=== PATIENT | male | born 1955 | race Caucasian/White ===

== ENCOUNTER 2019-03-07 12:51 | Inpatient (IN) ==
--- NOTE | 2019-03-07 13:50 | Diag Imaging Result Doc PS360 ---
EXAM: CHEST-PORTABLE HISTORY: psych clearance TECHNIQUE: Chest single view COMPARISON: None. FINDINGS: The lungs are well expanded. The heart is not enlarged. The vessels are not distended. There are dense right upper lobe infiltrates. No effusion identified. IMPRESSION: Right upper lobe pneumonia. Short-term follow-up PA and lateral recommended. Electronically signed by Pepe Guillen 03/07/2019 1:48 PM
[2019-03-07 14:48] LABS: URINE SOURCE CATH
[2019-03-07 14:54] LABS: BILIRUBIN URINE NEGATIVE (NEGATIVE); BLOOD URINE MODERATE (NEGATIVE); COLOR YELLOW; GLUCOSE URINE NEGATIVE (NEGATIVE); KETONE URINE 20 mg/dL (NEGATIVE); LEUKOCYTES URINE LARGE (NEGATIVE); NITRITE URINE NEGATIVE (NEGATIVE); PH URINE 5.5; PROTEIN URINE 30 mg/dL (NEGATIVE); SP GRAVITY URINE 1.015; TURBIDITY URINE HAZY (CLEAR); UROBILINOGEN URINE NORMAL (NORMAL)
[2019-03-07 14:56] LABS: UR EPITHELIAL CELLS <10 /HPF (<10); URINE BACTERIA NEGATIVE /HPF; URINE WBC TNTC /HPF (<10)
[2019-03-07 15:14] LABS: URINE CASTS NONE SEEN; URINE CRYSTALS NONE SEEN; URINE SMALL ROUND CELLS NONE SEEN; URINE YEAST NONE SEEN
[2019-03-07 15:19] LABS: UR AMPHETAMINES QUAL NONE DETECTED (NONE DETECT); UR BARBITUATES QUAL NONE DETECTED (NONE DETECT); UR BENZODIAZEPIN QUAL PRESUMPTIVE POSITIVE (NONE DETECT); UR CANNABINOIDS QUAL NONE DETECTED (NONE DETECT); UR COCAINE QUAL NONE DETECTED (NONE DETECT); UR METHADONE QUAL NONE DETECTED (NONE DETECT); UR OPIATES QUAL NONE DETECTED (NONE DETECT); UR OXYCODONE QUAL NONE DETECTED (NONE DETECT); UR PCP QUAL NONE DETECTED (NONE DETECT)
--- NOTE | 2019-03-07 15:21 | Diag Imaging Result Doc PS360 ---
EXAM: CT HEAD W/O CONTRAST HISTORY: ams TECHNIQUE: CT head without contrast COMPARISON: 07/03/2015 FINDINGS: No parenchymal hemorrhage. No epidural or subdural hematoma. No subarachnoid hemorrhage. Encephalomalacia from an old left occipital infarct. There are chronic microvascular ischemic changes with old lacunar infarcts bilaterally. No mass identified on this noncontrasted exam. No hydrocephalus. No sinus opacification. 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 Electronically signed by Pepe Guillen 03/07/2019 3:19 PM
[2019-03-07] MEDS ORDERED: NS 1,000 ML IV ONE ×2 (16:48→16:52)
[2019-03-07] MEDS ORDERED: ROCEPHIN 1 GM in NS 50 ML IV ONE (16:48)
[2019-03-07] MEDS ORDERED: ZOSYN 3.375 GM in NS 50 ML IV ONE (16:52)
[2019-03-07] MEDS ORDERED: VANCOMYCIN 1 GM/NS 1 GM/250 ML IVPB IV ONE (16:52)
[2019-03-07 17:13] LABS: BASO# 0.03 X1000 (0.0-0.2); BASO% 0.2 % (0.0-0.8); EOS% 0.5 % (0.0-10.0); HEMATOCRIT 31.3 % (42.0-52.0); HEMOGLOBIN 10.4 g/dL (14.0-18.0); IMM GRAN# 0.06 X1000 (0.0-0.04); IMM GRAN% 0.3 % (0.0-0.5); LYMPH# 1.32 X1000 (1.2-3.4); LYMPH% 6.9 % (20.5-51.1); MCH 28.3 PG (27-31); MCHC 33.2 g/dL (33-37); MCV 85.1 FL (81-99); MONO# 3.17 X1000 (0.11-0.59); MONO% 16.5 % (1.7-9.3); MPV 9.3 FL (7.4-10.4); NEUT# 14.48 X1000 (1.4-6.5); NEUT% 75.6 % (42.2-75.2); PLT 368 X1000 (130-400); RBC 3.68 XMIL (4.7-6.1); WBC 19.16 X1000 (4.8-10.8)
[2019-03-07 17:29] LABS: AGAP 12; ALB/GLOB RATIO 0.7; ALKALINE PHOSPHATASE 68 U/L (32-122); BUN 13 mg/dL (8-22); CALCIUM 8.7 mg/dL (8.8-10.2); CHLORIDE 99 mmol/L (98-107); COSMO 270; CREATININE 0.7 mg/dL (0.7-1.2); ESTIMATED GFR > 60; GLUCOSE 67 mg/dL (70-104); GOT 17 U/L (10-34); GPT 7 U/L (10-44); POTASSIUM 4.1 mmol/L (3.5-5.1); SODIUM 136 mmol/L (136-145); TCO2 25 mmol/L (25-35); TOTAL BILIRUBIN 0.34 mg/dL (0.20-1.00); TOTAL PROTEIN 7.4 g/dL (6.3-8.3)
[2019-03-07 17:49] LABS: FREE T4 2.66 ng/dL (0.93-1.70); TSH 0.01 uIUmL (0.27-4.20)
[2019-03-07 17:57] LABS: ACETONE SERUM NEGATIVE (NEGATIVE)
[2019-03-07] MEDS ORDERED: STERILE WATER INJ. INJ ONE (18:03)
[2019-03-07] MEDS ORDERED: GEODON IM ONE (18:03)
[2019-03-07] MEDS ORDERED: BENADRYL IV ONE (18:04)
--- NOTE | 2019-03-07 18:04 | PROVIDER DOCUMENTATION ---
This chart was entered by Niki Melton Scribe, acting as scribe for Olman Jones MD. HPI-General Adult - General Chief Complaint: General Adult Stated Complaint: MEDICAL CLEARENCE Time Seen by Provider: 03/07/19 13:17 Source: RN/MD, senior living records Allergies/Adverse Reactions: Patient Allergies Allergy/AdvReac Type Severity Reaction Status Date / Time No Known Allergies Allergy Unverified 07/03/15 10:12 Home Medications: Home Medication List Medication Instructions Recorded Confirmed Last Taken Type No Home Medications 05/17/12 07/03/15 Unknown History - History of Present Illness -Gen Adult Nature of Presenting Problems: 63 yom presents to er needing medical clearance [facility] to [facility] [place] from [facility]. senior living notes reviews, pt has hx of dm, dementia and behavior disorder. pt is poor historian, unsure why he is in er and confused. Review of Systems - Adult - REVIEW OF SYSTEMS - ADULT ROS:: limited per condition (rn and senior living notes reviewed) Constitutional: reports: see HPI, other (medical clearance needed to move to [facility]). denies: chills, fever, fatique Eyes: reports: no symptoms reported Ears, Nose, Mouth & Throat: reports: no symptoms reported Cardiovascular: reports: no symptoms reported Respiratory: reports: no symptoms reported Gastrointestinal: reports: no symptoms reported Genitourinary: reports: no symptoms reported Musculoskeletal: reports: no symptoms reported Integumentary: reports: no symptoms reported Neurological: reports: no symptoms reported Psychiatric: reports: no symptoms reported Endocrine: reports: no symptoms reported Hematologic/Lymphatic: reports: no symptoms reported Allergic/Immunologic: reports: no symptoms reported All Other Systems: Reviewed and Negative Past History - Adult - PAST MEDICAL HISTORY-ADULT Review of Records: reports: Old Records Reviewed, Nursing Assessment Review, Medications Reviewed, Social history reviewed & non-contributory. Major Childhood Illnesses: reports: denies history Cardiovascular: reports: denies history Respiratory: reports: denies history Gastrointestinal: reports: denies history Obstetrical/Gynecological: reports: denies history Genitourinary: reports: denies history Musculoskeletal: reports: denies history Neurological: reports: dementia Psychiatric: reports: depression, other (behavioral disorder) Endocrine/Immune: reports: Diabetes Other Conditions: reports: denies history - PRIOR SURGERIES/PROCEDURES Surgical/Procedure History: reports: orthopedic (extremity) - IMMUNIZATION STATUS Childhood Immunizations: See Nurse Assessment Flu Vaccine: See Nurse Assessment - FAMILY HISTORY Family History: reviewed, not pertinent - SOCIAL HISTORY Smoking: cigarettes, less than 1 pack/day Provider spent 3-5 mins advising pt. on dangers of tobacco.: Discussed manners to quit use, and f/u contacts for add'l counseling. Substance Use: none/never Physical Exam-General - PHYSICAL EXAM-ADULT Initial Vital Signs Reviewed: Yes - CONSTITUTIONAL General Appearance: appears well, alert, no apparent distress, slow to respond, other (confused conversation). negative: anxious, lethargic, combative - EYES Eyes: PERRL/EOMI, pink conjunctivae, other (ptosis left eye) - HEAD, EARS, NOSE, MOUTH & THROAT HENMT: normocephalic/atraumatic, normal ENT inspection. negative: moist mucous membranes (dry mucous membranes) - NECK Neck: non-tender, full range of motion, supple, normal inspection - RESPIRATORY Respiratory: chest non-tender, lungs clear, normal breath sounds - CARDIOVASCULAR Cardiovascular: normal peripheral pulses, regular rate, rhythm - GASTROINTESTINAL (ABDOMEN) Abdominal Exam: normal bowel sounds, non tender, soft - LYMPHATIC Lymphatic: no adenopathy - MUSCULOSKELETAL Back Exam: normal inspection, no CVA tenderness, no vertebral tenderness Extremity: normal range of motion, non-tender, normal inspection Peripheral Pulses: radial (R): 2+, radial (L): 2+ - SKIN Integumentary: normal color, normal turgor, warm/dry - NEUROLOGIC Neurologic: grossly normal, no motor/sensory deficits, other (resting tremor). negative: EOM palsy, facial droop - PSYCHIATRIC Psych/Mental Status: disoriented x 3, other (pt confused). negative: normal mood/affect, normal thought content, normal thought process, oriented x 3, paranoid, tearful Progress - PLAN OF CARE/RESULTS Progress/Plan/Lab Results: Vital Signs - 8 hr 03/07/19 13:04 Temperature 97.9 F Pulse Rate 75 Respiratory Rate 18 Blood Pressure 144/78 O2 Sat by Pulse Oximetry 96 Result Diagrams: 03/07/19 17:00 03/07/19 17:00 - REASSESSMENT Reassessment #1 Time Reassessed: 18:01 Status: improving (Patient only has 1 SIRS criteria, no evidence of sepsis, but RUL infiltrate and UTI from senior living. Given IVF bolus and Vanco/Zosyn) - XRAY 1 XRAY Study: Chest Impression: Abnormal, See EMR Report ( EXAM: CHEST-PORTABLE HISTORY: psych clearance TECHNIQUE: Chest single view COMPARISON: None. FINDINGS: The lungs are well expanded. The heart is not enlarged. The vessels are not distended. There are dense right upper lobe infiltrates. No effusion identified. IMPRESSION: Right upper lobe pneumonia. Short-term follow-up PA and lateral recommended. Electronically signed by Pepe Guillen 03/07/2019 1:48 PM 03/07/19 1348 Interpreting Physician: Pepe Guillen MD Dictated Date/Time: 03/07/19 1347 cc: Olman Jones MD; None,PCP) - CT/MRI 1 CT Study: Head Impression: Abnormal, See EMR Report (EXAM: CT HEAD W/O CONTRAST HISTORY: ams TECHNIQUE: CT head without contrast COMPARISON: 07/03/2015 FINDINGS: No parenchymal hemorrhage. No epidural or subdural hematoma. No subarachnoid hemorrhage. Encephalomalacia from an old left occipital infarct. There are chronic microvascular ischemic changes with old lacunar infarcts bilaterally. No mass identified on this noncontrasted exam. No hydrocephalus. No sinus opacification. 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 Electronically signed by Pepe Guillen 03/07/2019 3:19 PM 03/07/19 1519 Interpreting Physician: Pepe Guillen MD Dictated Date/Time: 03/07/19 1516 cc: Olman Jones MD; None,PCP) Departure - Departure Date of Disposition Decision: 03/07/19 Time of Disposition Decision: 18:02 DIAGNOSIS: Altered mental status, unspecified Qualifiers: Altered mental status type: transient alteration of awareness Qualified Code(s): R40.4 - Transient alteration of awareness Right upper lobe pneumonia Qualifiers: Pneumonia type: due to unspecified organism Qualified Code(s): J18.1 - Lobar pneumonia, unspecified organism UTI (urinary tract infection) Qualifiers: Urinary tract infection type: acute cystitis Hematuria presence: with hematuria Qualified Code(s): N30.01 - Acute cystitis with hematuria Disposition: ADMITTED INPATIENT 09 Certified Medical Emergency: Emergent Condition: Fair Referrals and Follow-Ups: None,PCP [Primary Care Provider] - - Critical Care Note This patient required my direct & personal management of CC.: No Attestation - Physician/ VAISHALI Attestation Patient care was provided by Advanced Practice Provider:: No The physician spent face to face time with patient:: Yes Advanced Practice Provider documentation review:: Supervising physician onsite and consulted in the evaluation and care of this patient. The physician did have a face to face encounter with the patient. This chart was documented by the indicated scribe, (Niki Melton Scribe) and accurately reflects the services I performed and decisions made by me, Olman Jones MD, as attested by the provider's signature.
--- NOTE | 2019-03-07 20:59 | HISTORY AND PHYSICAL ---
HISTORY OF PRESENT ILLNESS: This is a 63-year-old gentleman who is a snf patient. He was transferred from [facility] for altered mental status. He is from [facility]. It is unclear what his baseline is. He does have significant dementia. He does have a history of tobacco abuse. His medications have not been resolved per the snf and there is no family. Patient is fairly altered, so he really can't give much information. The patient was evaluated in the ER, felt to have pneumonia amongst other things, and he was admitted for treatment. This is possibly an aspiration type pneumonia. I do not think he has known hypothyroidism, but he was found to have hyperthyroidism in the ER. The patient was evaluated in the ER and was found to be transferred there. The patient was evaluated. I think he is long-term care for dementia. He also has evidence of urinary tract infection. There was concern that he may have had a mass in the past, but in any case, there is no clear evidence of that. Although, he had seizure disorder in the past as well. PAST SURGICAL HISTORY: I do not think he had clear abdominal surgeries. SOCIAL HISTORY: No tobacco or ethanol currently, but I do think he has a history of tobacco abuse. ALLERGIES: No known drug allergies. MEDICATION LIST: Is being compiled. FAMILY HISTORY: Was really unobtainable. REVIEW OF SYSTEMS: Was unobtainable. PHYSICAL EXAM: VITAL SIGNS: Blood pressure 144/78, heart rate 75, respiratory rate 18, temperature 97.9 degrees. GENERAL: A thin male in no acute distress. HEAD EXAM: Was normocephalic, atraumatic. EYE EXAM: Pupils equal, round, reactive to light. Extraocular movements were intact. EAR, NOSE AND THROAT EXAM: He had moist mucous membranes. NECK EXAM: Was supple. CARDIOVASCULAR: Tachycardia. PULMONARY: Had rhonchi and wheezing. GI: Was soft, nontender, nondistended. Bowel sounds are positive. NEURO EXAM: Was limited. He would follow simple commands. There was nothing focal. He did have some kind of grumbling he was doing, but he does seems disheveled and completely unaware of his surroundings, although he did respond and he was at least a 4 to 5 in all 4 extremities. LABORATORY DATA: White count is 19 which has previously been elevated. H H 10 and 31, platelets 368,000. Basic looked okay. TSH was low at 0.01 with a free T4 elevation at 2.66 and a normal B12. He had aec-[id number]-count white blood cells, no squames, no nitrites. Urine drug screen positive for benzodiazepines. Chest x-ray showed right upper lobe pneumonia. Head CT showed old left occipital infarct, but no acute process. ASSESSMENT: This is a 63-year-old snf patient who presents with encephalopathy but multifactorial. He has pneumonia. He has a urinary tract infection. He has hyperthyroid state, which is not completely understood if this is iatrogenic or not. I did not specifically see any Synthroid. This is a 63-year-old male with history of severe dementia, seizure disorder who presents from sn[facility] with encephalopathy and findings consistent with pneumonia, urinary tract infection and hyperthyroidism. 1. Pneumonia which is hospital-acquired type. We will continue broad-spectrum antibiotics and follow repeat chest x-ray, sputum culture, pulmonary toilet. 2. Urinary tract infection. We will continue empiric antibiotics and follow urine cultures and monitor. 3. Hyperthyroid state. We will check a thyroid ultrasound, long-acting thyroid stimulating globulins and monitor. I am not sure again if this is iatrogenic. We will need to get a full medication list prior and then we will evaluate. 4. Dementia. We will continue regular medications and follow. DISPOSITION: Pending clinical status. Update family accordingly. I did not appreciate any family currently. cc: Antonio Dos Santos MD
[2019-03-07] MEDS ORDERED: TYLENOL PO PRN (23:20)
[2019-03-07] MEDS ORDERED: ZOFRAN IV PRN (23:20)
[2019-03-07] MEDS: NS 1,000 ML IV SCH (23:51)
[2019-03-07] MEDS: FLAGYL 500 MG/NS 500 MG/100 ML IVPB IV SCH (23:52)
[2019-03-07] MEDS: LOVENOX SUBQ SCH (23:56)
[2019-03-08] MEDS: TAPAZOLE PO SCH ×3 (00:09→21:35)
[2019-03-08] MEDS: ZYVOX 600 MG/D5W 600 MG/300 ML IVPB IV SCH ×2 (01:04→12:57)
[2019-03-08] MEDS: MAXIPIME 1 GM in NS 50 ML IV SCH ×3 (01:50→15:22)
[2019-03-08] MEDS: DUONEB (A & A) INH SCH ×4 (03:41→22:31)
[2019-03-08] MEDS: MUCOMYST 20% INH SCH ×3 (04:37→22:32)
[2019-03-08] MEDS: HALDOL IV PRN (06:01)
[2019-03-08] MEDS: FLAGYL 500 MG/NS 500 MG/100 ML IVPB IV SCH ×2 (06:02→11:17)
[2019-03-08] MEDS: PRILOSEC PO SCH (06:08)
--- NOTE | 2019-03-08 06:57 | Diag Imaging Result Doc PS360 ---
EXAM: CHEST-PORTABLE 03/08/2019 HISTORY: resp failure TECHNIQUE: AP portable at 0554 COMMENT: There is dense opacification of the right upper lobe which has worsened since 03/07/2019. The inspiration is less optimal. IMPRESSION: Right upper lobe pneumonia. Electronically signed by Angel Escudero 03/08/2019 6:55 AM
[2019-03-08 08:13] LABS: BASO# 0.02 X1000 (0.0-0.2); BASO% 0.2 % (0.0-0.8); EOS% 0.8 % (0.0-10.0); HEMATOCRIT 29.7 % (42.0-52.0); HEMOGLOBIN 9.5 g/dL (14.0-18.0); IMM GRAN# 0.03 X1000 (0.0-0.04); IMM GRAN% 0.2 % (0.0-0.5); LYMPH# 0.85 X1000 (1.2-3.4); LYMPH% 6.5 % (20.5-51.1); MCH 27.5 PG (27-31); MCV 85.8 FL (81-99); MONO# 2.09 X1000 (0.11-0.59); MONO% 15.9 % (1.7-9.3); MPV 9.2 FL (7.4-10.4); NEUT# 10.05 X1000 (1.4-6.5); NEUT% 76.4 % (42.2-75.2); PLT 345 X1000 (130-400); RBC 3.46 XMIL (4.7-6.1); WBC 13.14 X1000 (4.8-10.8)
--- NOTE | 2019-03-08 08:25 | Diag Imaging Result Doc PS360 ---
EXAM: US SOFT TISSUE HEAD/NECK 03/08/2019 HISTORY: hyperthyroid TECHNIQUE: Thyroid ultrasound COMMENT: The right thyroid lobe measures 3.4 x 2.4 x 1.4 cm the left is 3.8 x 1.8 x 1.6 cm. The thyroid gland is fairly homogeneous and there are no discrete masses. IMPRESSION: Normal thyroid ultrasound. Electronically signed by Angel Escudero 03/08/2019 8:23 AM
--- NOTE | 2019-03-08 08:28 | HISTORY AND PHYSICAL ---
ADDENDUM: PAST MEDICAL HISTORY: 1. Diabetes which is insulin dependent. 2. Vascular dementia. He is on multiple medications including Depakote. 3. Hypertension. 4. Dyslipidemia. 5. Neuropathy. 6. Seizure disorder, presumably related to stroke. 7. Anxiety, depression. 8. Possible chronic hyponatremia. cc: Antonio Dos Santos MD
[2019-03-08 08:48] LABS: AGAP 15; ALB/GLOB RATIO 0.7; ALBUMIN 2.8 g/dL (3.5-5.0); ALKALINE PHOSPHATASE 71 U/L (32-122); BUN 10 mg/dL (8-22); CALCIUM 8.4 mg/dL (8.8-10.2); CHLORIDE 102 mmol/L (98-107); COSMO 282; CREATININE 0.6 mg/dL (0.7-1.2); ESTIMATED GFR > 60; GLUCOSE 162 mg/dL (70-104); GOT 17 U/L (10-34); GPT 7 U/L (10-44); POTASSIUM 3.5 mmol/L (3.5-5.1); SODIUM 140 mmol/L (136-145); TCO2 23 mmol/L (25-35); TOTAL BILIRUBIN 0.36 mg/dL (0.20-1.00); TOTAL PROTEIN 6.6 g/dL (6.3-8.3)
[2019-03-08] MEDS: RISPERDAL PO SCH ×2 (08:50→21:35)
[2019-03-08] MEDS: COGENTIN PO SCH ×2 (08:50→21:36)
[2019-03-08] MEDS: ASPIRIN EC PO SCH (08:51)
[2019-03-08] MEDS: CYMBALTA PO SCH (08:51)
[2019-03-08] MEDS: KEPPRA PO SCH ×2 (08:51→21:35)
[2019-03-08] MEDS ORDERED: INSULIN GLARGINE HUM REC ANLOG 38 UNIT SQ SCH (09:00)
[2019-03-08] MEDS ORDERED: COGENTIN PO SCH (09:00)
[2019-03-08] MEDS: VIMPAT PO SCH ×2 (09:01→21:35)
[2019-03-08] MEDS: HUMULIN R SUBQ SCH ×4 (11:12→21:43)
[2019-03-08] MEDS: NS 1,000 ML IV SCH (15:26)
--- NOTE | 2019-03-08 16:51 | PROGRESS NOTE ---
DATE: 03/08/2019 SUBJECTIVE: The patient is resting comfortably. He is pleasantly confused. OBJECTIVE: Vital Signs: Temperature 98.7 degrees, blood pressure 143/57, heart rate 85, respirations 18, O2 saturation is 100% on 2 L nasal cannula. General: This is a chronically ill- appearing elderly male lying in bed in no acute distress. Heart: S1, S2 normal. Regular rate and rhythm. Lungs: Equal air entry bilaterally. Abdomen: Positive bowel sounds. Soft, nontender, nondistended. Extremities: No edema, no cyanosis. Neurologic: The patient is awake and oriented to self. LABS: White blood cell count 13, hemoglobin 9.5, hematocrit 29, platelets 345,000. Sodium 140, potassium 3.5, chloride 102 CO2 30 23, BUN 10, creatinine 0.6 glucose 162. ASSESSMENT AND PLAN: 1. Healthcare acquired pneumonia. Continue with broad-spectrum antibiotic coverage, supplemental oxygen and bronchodilator therapy. 2. Hyperthyroidism. Continue on Tapazole. 3. Seizure disorder. Continue on Keppra and Vimpat. 4. Anxiety disorder. Continue on Xanax. 5. Metabolic encephalopathy versus dementia. We will monitor the patient's mental status closely. 6. Benign prostatic hypertrophy. Continue on Flomax. 7. Deep vein thrombosis prophylaxis. Continue on Lovenox. cc: Cathy Blanc MD
[2019-03-08] MEDS: FLOMAX PO SCH (21:35)
[2019-03-08] MEDS: DEPAKOTE ER PO SCH (21:35)
[2019-03-08] MEDS: LIPITOR PO SCH (21:35)
[2019-03-08] MEDS: CALTRATE 600 + D PO SCH (21:36)
[2019-03-08] MEDS: LOVENOX SUBQ SCH (22:59)
[2019-03-09] MEDS: NS 1,000 ML IV SCH (00:34)
[2019-03-09] MEDS: ZYVOX 600 MG/D5W 600 MG/300 ML IVPB IV SCH ×2 (00:35→13:23)
[2019-03-09] MEDS: MAXIPIME 1 GM in NS 50 ML IV SCH ×2 (03:32→15:10)
[2019-03-09] MEDS: DUONEB (A & A) INH SCH ×4 (04:10→22:13)
[2019-03-09] MEDS: PRILOSEC PO SCH (07:04)
[2019-03-09] MEDS: HUMULIN R SUBQ SCH ×4 (07:05→21:57)
[2019-03-09 07:19] LABS: HEMATOCRIT 29.3 % (42.0-52.0); HEMOGLOBIN 9.5 g/dL (14.0-18.0); MCH 28.3 PG (27-31); MCHC 32.4 g/dL (33-37); MCV 87.2 FL (81-99); MPV 8.8 FL (7.4-10.4); RBC 3.36 XMIL (4.7-6.1); RDW 12.9 % (11.5-14.5); WBC 12.95 X1000 (4.8-10.8)
[2019-03-09 07:40] LABS: AGAP 13; BUN 8 mg/dL (8-22); CHLORIDE 98 mmol/L (98-107); COSMO 269; CREATININE 0.7 mg/dL (0.7-1.2); ESTIMATED GFR > 60; GLUCOSE 182 mg/dL (70-104); POTASSIUM 3.1 mmol/L (3.5-5.1); SODIUM 133 mmol/L (136-145); TCO2 22 mmol/L (25-35)
[2019-03-09] MEDS: ASPIRIN EC PO SCH (08:40)
[2019-03-09] MEDS: TAPAZOLE PO SCH ×2 (08:40→20:39)
[2019-03-09] MEDS: CYMBALTA PO SCH (08:40)
[2019-03-09] MEDS: VIMPAT PO SCH ×2 (08:40→21:55)
[2019-03-09] MEDS: RISPERDAL PO SCH ×2 (08:40→20:40)
[2019-03-09] MEDS: COGENTIN PO SCH ×2 (08:40→20:40)
[2019-03-09] MEDS: XANAX PO SCH (08:40)
[2019-03-09] MEDS: KEPPRA PO SCH ×2 (08:41→20:39)
[2019-03-09] MEDS: MUCOMYST 20% INH SCH ×2 (09:23→22:13)
[2019-03-09] MEDS: DEPAKOTE ER PO SCH (20:38)
[2019-03-09] MEDS: HALDOL IV PRN (20:38)
[2019-03-09] MEDS: FLOMAX PO SCH (20:41)
[2019-03-09] MEDS: CALTRATE 600 + D PO SCH (20:41)
[2019-03-09] MEDS: LIPITOR PO SCH (20:41)
[2019-03-09] MEDS: LOVENOX SUBQ SCH (23:49)
[2019-03-10] MEDS: MAXIPIME 1 GM in NS 50 ML IV SCH ×2 (01:48→15:39)
[2019-03-10] MEDS: ZYVOX 600 MG/D5W 600 MG/300 ML IVPB IV SCH ×2 (01:50→12:44)
[2019-03-10] MEDS: DUONEB (A & A) INH SCH ×4 (03:45→22:53)
--- NOTE | 2019-03-10 03:52 | PROGRESS NOTE ---
DATE: 03/09/2019 SUBJECTIVE: The patient is resting comfortably in bed. No acute events noted overnight. OBJECTIVE: Vital Signs: Temperature 98.6 degrees, blood pressure 149/74, heart rate 98, respirations 13, O2 saturation 98% on room air. General: This is an elderly male lying in bed in no acute distress. Heart: S1, S2, normal. Regular rate and rhythm. Lungs: Equal air entry bilaterally. Abdomen: Positive bowel sounds. Soft, nontender, nondistended. Extremities: No edema, no cyanosis. Neurologic: The patient is awake and alert. LABS: White blood cell count 12, hemoglobin 9.5, hematocrit 29, platelets 356,000. Sodium 133, potassium 3.1, chloride 98, CO2 22, BUN 8, creatinine 0.7, glucose 182. ASSESSMENT AND PLAN: 1. Right upper lobe pneumonia. Continue with antibiotics, bronchodilator therapy, and supplemental oxygen. 2. Hypothyroidism. Continue on Tapazole. 3. Anxiety disorder. Continue on Xanax. 4. Seizure disorder. Continue on Keppra, Depakote, and Vimpat. 5. Dementia. Aware. 6. Benign prostatic hypertrophy. Continue on Flomax. 7. Deep vein thrombosis prophylaxis. Continue on Lovenox. 8. Disposition. We will consult Physical Therapy. cc: Cathy Blanc MD
[2019-03-10 04:57] LABS: ALLEN TEST YES; BE -3.2 mmoll (-3.0-3.0); BLOOD TYPE ARTERIAL; HCO3-(ACT) 22.3 mmoll (20.0-26.0); O2(CT) 10.8 mL/dL (15.0-23.0); PCO2(98.6) 27 mmHg (35-45); PO2(98.6) 50 mmHg (60-100); SAMPLE BLOOD; SAO2 89.4 % (95.0-100.0); THB 8.8 g/dL (11.5-17.4); pH(98.6) 7.47 (7.35-7.45)
[2019-03-10 05:00] LABS: MODALITY ROOM AIR; O2HB 86.7 % (95.0-99.0)
[2019-03-10] MEDS: PRILOSEC PO SCH (06:19)
--- NOTE | 2019-03-10 06:32 | Diag Imaging Result Doc PS360 ---
EXAM: CHEST-1 VIEW HISTORY: pneumonia TECHNIQUE: Chest single view COMPARISON: 03/08/2019 FINDINGS: There are dense infiltrates in the right upper lobe. The heart is enlarged. There is vascular distention. No pleural effusions identified. IMPRESSION: No interval improvement. Electronically signed by Pepe Guillen 03/10/2019 6:30 AM
[2019-03-10] MEDS: HUMULIN R SUBQ SCH ×4 (06:53→20:06)
[2019-03-10 07:26] LABS: HEMATOCRIT 26.9 % (42.0-52.0); HEMOGLOBIN 8.8 g/dL (14.0-18.0); MCH 28.2 PG (27-31); MCHC 32.7 g/dL (33-37); MCV 86.2 FL (81-99); MPV 8.7 FL (7.4-10.4); RBC 3.12 XMIL (4.7-6.1); RDW 12.9 % (11.5-14.5); WBC 10.5 X1000 (4.8-10.8)
[2019-03-10 07:57] LABS: AGAP 14; BUN 5 mg/dL (8-22); CHLORIDE 98 mmol/L (98-107); COSMO 270; CREATININE 0.6 mg/dL (0.7-1.2); ESTIMATED GFR > 60; GLUCOSE 217 mg/dL (70-104); SODIUM 133 mmol/L (136-145); TCO2 21 mmol/L (25-35)
[2019-03-10] MEDS: RISPERDAL PO SCH ×2 (08:14→21:02)
[2019-03-10] MEDS: ASPIRIN EC PO SCH (08:14)
[2019-03-10] MEDS: COGENTIN PO SCH ×2 (08:14→21:01)
[2019-03-10] MEDS: XANAX PO SCH (08:14)
[2019-03-10] MEDS: KEPPRA PO SCH ×2 (08:14→21:00)
[2019-03-10] MEDS: TAPAZOLE PO SCH ×2 (08:15→21:02)
[2019-03-10] MEDS: CYMBALTA PO SCH (08:15)
[2019-03-10] MEDS: VIMPAT PO SCH ×2 (08:15→21:03)
[2019-03-10] MEDS ORDERED: POTASSIUM CHLORIDE 60 MEQ in NS 500 ML IV ONE (08:29)
[2019-03-10] MEDS: MUCOMYST 20% INH SCH ×2 (09:43→22:53)
--- NOTE | 2019-03-10 18:18 | PROGRESS NOTE ---
DATE: 03/10/2019 SUBJECTIVE: The patient was noted to be mean and rude to staff yesterday and overnight. He did pull off his oxygen and will not wear it consistently. OBJECTIVE: Vital Signs: Temperature 97.9 degrees, blood pressure 159/73, heart rate 92, respirations 20, O2 saturation is 98% on 2 L nasal cannula. General: This is a chronically ill- appearing, elderly male lying in bed, in no acute distress. Heart: S1, S2 normal. Tachycardic. Lungs: Coarse breath sounds. Abdomen: Positive bowel sounds. Soft, nontender, nondistended. Extremities: No edema. No cyanosis. Neurologic: The patient is awake and alert. LABS: White blood cell count 10, hemoglobin 8.8, hematocrit 26, platelets 360,000. ABG, pH is 7.47, pCO2 is 27, PO2 50. Sodium 133, potassium 3, chloride 98, CO2 21, BUN 5, creatinine 0.6, glucose 217. Chest x-ray shows dense infiltrates in the right upper lobe. ASSESSMENT AND PLAN: 1. Acute hypoxemic respiratory failure. Likely secondary to pneumonia. Continue with antibiotic therapy. 2. Healthcare acquired pneumonia. We will continue with broad-spectrum antibiotics, supplemental oxygen, and bronchodilator therapy. 3. Hyperthyroidism. Continue on Tapazole. 4. Anxiety disorder. Continue on Xanax. 5. Seizure disorder. Continue on Keppra, Depakote, and Vimpat. 6. Benign prostatic hypertrophy. Continue on Flomax. 7. Deep vein thrombosis prophylaxis. Continue on Lovenox. cc: Cathy Blanc MD [facility]
[2019-03-10] MEDS: CALTRATE 600 + D PO SCH (21:00)
[2019-03-10] MEDS: DEPAKOTE ER PO SCH (21:00)
[2019-03-10] MEDS: LIPITOR PO SCH (21:02)
[2019-03-10] MEDS: FLOMAX PO SCH (21:02)
[2019-03-11] MEDS: LOVENOX SUBQ SCH
[2019-03-11] MEDS: DUONEB (A & A) INH SCH ×4 (03:35→21:23)
[2019-03-11] MEDS: MAXIPIME 2 GM in NS 100 ML IV SCH ×2 (04:00→16:49)
[2019-03-11] MEDS: HUMULIN R SUBQ SCH ×4 (06:31→21:00)
[2019-03-11 08:22] LABS: BASO# 0.02 X1000 (0.0-0.2); BASO% 0.2 % (0.0-0.8); EOS# 0.17 X1000 (0.0-0.7); EOS% 1.6 % (0.0-10.0); HEMATOCRIT 25.5 % (42.0-52.0); HEMOGLOBIN 8.2 g/dL (14.0-18.0); IMM GRAN# 0.04 X1000 (0.0-0.04); IMM GRAN% 0.4 % (0.0-0.5); LYMPH# 1.15 X1000 (1.2-3.4); MCH 27.2 PG (27-31); MCHC 32.2 g/dL (33-37); MCV 84.7 FL (81-99); MONO# 1.65 X1000 (0.11-0.59); MONO% 15.8 % (1.7-9.3); PLT 380 X1000 (130-400); RBC 3.01 XMIL (4.7-6.1); RDW 13.1 % (11.5-14.5); WBC 10.43 X1000 (4.8-10.8)
[2019-03-11 08:38] LABS: AGAP 15; BUN 5 mg/dL (8-22); CALCIUM 8.2 mg/dL (8.8-10.2); CHLORIDE 99 mmol/L (98-107); COSMO 268; CREATININE 0.5 mg/dL (0.7-1.2); ESTIMATED GFR > 60; GLUCOSE 209 mg/dL (70-104); POTASSIUM 3.3 mmol/L (3.5-5.1); SODIUM 132 mmol/L (136-145); TCO2 18 mmol/L (25-35)
[2019-03-11] MEDS: XANAX PO SCH (08:48)
[2019-03-11] MEDS: PRILOSEC PO SCH (08:48)
[2019-03-11] MEDS: TAPAZOLE PO SCH ×2 (08:48→20:19)
[2019-03-11] MEDS: ASPIRIN EC PO SCH (08:48)
[2019-03-11] MEDS: COGENTIN PO SCH ×2 (08:48→20:19)
[2019-03-11] MEDS: CYMBALTA PO SCH (08:48)
[2019-03-11] MEDS: KEPPRA PO SCH ×2 (08:48→20:20)
[2019-03-11] MEDS: RISPERDAL PO SCH ×2 (08:49→20:20)
[2019-03-11] MEDS: VIMPAT PO SCH ×2 (08:49→20:18)
[2019-03-11] MEDS: MUCOMYST 20% INH SCH ×2 (10:18→21:23)
[2019-03-11] MEDS ORDERED: KLOR-CON PO ONE (10:41)
[2019-03-11] MEDS ORDERED: LEVEMIR SUBQ ONE (10:54)
[2019-03-11] MEDS: ZYVOX 600 MG/D5W 600 MG/300 ML IVPB IV SCH ×2 (13:13)
[2019-03-11] MEDS ORDERED: LASIX IV ONE (17:10)
[2019-03-11] MEDS: HALDOL IV PRN (17:46)
[2019-03-11 18:37] LABS: ALLEN TEST YES; BE -2.8 mmoll (-3.0-3.0); BLOOD TYPE ARTERIAL; HCO3-(ACT) 22.7 mmoll (20.0-26.0); METHB 1.4 % (0.0-1.5); O2HB 96.3 % (95.0-99.0); PCO2(98.6) 25 mmHg (35-45); PO2(98.6) 130 mmHg (60-100); SAMPLE BLOOD; SAO2 99.3 % (95.0-100.0); THB 9.4 g/dL (11.5-17.4)
[2019-03-11 18:39] LABS: MODALITY CANNULA
[2019-03-11] MEDS: XANAX PO PRN (19:36)
--- NOTE | 2019-03-11 19:58 | Diag Imaging Result Doc PS360 ---
EXAM: CHEST-PORTABLE INDICATION: SOB, tachypnea TECHNIQUE: One view COMPARISON: 03/10/2019 FINDINGS: The dense airspace consolidation in the right upper lobe is stable. Milder interstitial thickening involving the remainder of the right lung as well as the left lung and prominent central vasculature is stable. No new consolidation is identified. Cardiac silhouette is stable. IMPRESSION: Stable chest. Electronically signed by Win Melton 03/11/2019 7:56 PM
[2019-03-11] MEDS: CALTRATE 600 + D PO SCH (20:19)
[2019-03-11] MEDS: DEPAKOTE ER PO SCH (20:19)
[2019-03-11] MEDS: FLOMAX PO SCH (20:19)
[2019-03-11] MEDS: LIPITOR PO SCH (20:20)
[2019-03-11] MEDS: LEVEMIR SUBQ SCH (20:21)
--- NOTE | 2019-03-11 21:46 | PROGRESS NOTE ---
DATE: 03/11/2019 SUBJECTIVE: The patient is resting comfortably in bed. He refuses to wear his oxygen consistently. He has also been very belligerent and abusive toward the nursing staff and technicians. OBJECTIVE: Vital Signs: Temperature 98.8 degrees, blood pressure 150/75, heart rate 108, respirations 15, O2 saturation is 96% on 2 L nasal cannula. General: This is a chronically ill- appearing male lying in bed in no acute distress. Heart: S1, S2 normal. Tachycardic. Lungs: Coarse breath sounds. Abdomen: Positive bowel sounds. Soft, nontender, nondistended. Extremities: No edema, no cyanosis. Neurologic: The patient is awake and oriented to self. LABORATORY: Hemoglobin 8.2, hematocrit 25, platelets 380,000. Sodium 132, potassium 3.3, chloride 99, CO2 of 18, BUN 5, creatinine 0.5, glucose 209. ASSESSMENT AND PLAN: 1. Acute hypoxemic respiratory failure. 2. Healthcare-acquired pneumonia. Continue with antibiotics, bronchodilator therapy, and supplemental oxygen. 3. Anemia. Will monitor the hemoglobin and hematocrit closely. 4. Hypothyroidism. Continue on Tapazole. 5. Anxiety disorder. Continue on Xanax. 6. Seizure disorder. Continue on Keppra, Depakote, and Vimpat. 7. Benign prostatic hypertrophy. Continue on Flomax. 8. Deep vein thrombosis prophylaxis. Continue on Lovenox. cc: Cathy Blanc MD
[2019-03-12] MEDS: ZYVOX 600 MG/D5W 600 MG/300 ML IVPB IV SCH ×2 (01:20→14:00)
[2019-03-12] MEDS: LOVENOX SUBQ SCH (01:34)
[2019-03-12] MEDS: MAXIPIME 2 GM in NS 100 ML IV SCH ×2 (03:22→14:22)
[2019-03-12] MEDS: DUONEB (A & A) INH SCH ×4 (03:28→21:28)
[2019-03-12] MEDS: HUMULIN R SUBQ SCH ×4 (06:20→22:23)
[2019-03-12] MEDS: PRILOSEC PO SCH (06:21)
[2019-03-12 06:40] LABS: ALLEN TEST YES; BE -2.5 mmoll (-3.0-3.0); BLOOD TYPE ARTERIAL; HCO3-(ACT) 22.9 mmoll (20.0-26.0); O2(CT) 12.4 mL/dL (15.0-23.0); O2HB 92.5 % (95.0-99.0); PCO2(98.6) 31 mmHg (35-45); PO2(98.6) 63 mmHg (60-100); SAMPLE BLOOD; SAO2 95.6 % (95.0-100.0); THB 9.5 g/dL (11.5-17.4); pH(98.6) 7.44 (7.35-7.45)
[2019-03-12 06:41] LABS: MODALITY ROOM AIR
[2019-03-12 08:10] LABS: HEMATOCRIT 29.2 % (42.0-52.0); HEMOGLOBIN 9.6 g/dL (14.0-18.0); MCH 28.2 PG (27-31); MCHC 32.9 g/dL (33-37); MCV 85.6 FL (81-99); RBC 3.41 XMIL (4.7-6.1); RDW 13.2 % (11.5-14.5); WBC 11.27 X1000 (4.8-10.8)
[2019-03-12 08:11] LABS: MPV 8.7 FL (7.4-10.4)
[2019-03-12 08:31] LABS: AGAP 12; BUN 5 mg/dL (8-22); CALCIUM 8.5 mg/dL (8.8-10.2); CHLORIDE 99 mmol/L (98-107); COSMO 274; CREATININE 0.6 mg/dL (0.7-1.2); ESTIMATED GFR > 60; GLUCOSE 282 mg/dL (70-104); MAGNESIUM 1.9 mg/dL (1.5-2.7); PHOSPHORUS 2.8 mg/dL (2.7-4.5); POTASSIUM 3.7 mmol/L (3.5-5.1); SODIUM 133 mmol/L (136-145); TCO2 22 mmol/L (25-35)
[2019-03-12] MEDS: LEVEMIR SUBQ SCH ×2 (09:39→22:23)
[2019-03-12] MEDS: COGENTIN PO SCH ×2 (09:40→22:27)
[2019-03-12] MEDS: CYMBALTA PO SCH (09:41)
[2019-03-12] MEDS: RISPERDAL PO SCH ×2 (09:41→22:22)
[2019-03-12] MEDS: KEPPRA PO SCH ×2 (09:41→22:28)
[2019-03-12] MEDS: ASPIRIN EC PO SCH (09:41)
[2019-03-12] MEDS: VIMPAT PO SCH ×2 (09:41→22:19)
[2019-03-12] MEDS: XANAX PO SCH (09:41)
[2019-03-12] MEDS: TAPAZOLE PO SCH ×2 (09:41→22:31)
[2019-03-12] MEDS: MUCOMYST 20% INH SCH ×2 (10:59→21:28)
--- NOTE | 2019-03-12 11:21 | Diag Imaging Result Doc PS360 ---
EXAM: CT THORAX W/O CONTRAST INDICATION: pneumonia TECHNIQUE: This exam was performed using automated exposure control, adjustment of mA or kV according to patient size, and/or use of iterative reconstruction technique. COMPARISON: None. FINDINGS: There is a fairly large right pleural effusion and a small to moderate-sized left effusion. There is associated dependent atelectasis bilaterally. There is a very dense airspace consolidation involving the right upper lobe that extends to the apex indicating pneumonia. There is mild interstitial thickening with a basilar predominance suggesting mild interstitial edema. There is evidence of pulmonary venous congestion. There is cardiomegaly. There is coronary artery atherosclerotic calcification. There are shotty mildly prominent mediastinal lymph nodes that are probably reactive. There is a small hiatal hernia. Limited views of the upper abdomen are essentially unremarkable. IMPRESSION: 1.Very dense airspace consolidation in the right upper lobe indicating pneumonia. Follow-up with chest radiograph is recommended to assure clearing. 2.Pulmonary venous congestion and mild interstitial edema bilaterally. 3.Bilateral pleural effusions with adjacent atelectasis, more prominent on the right. Electronically signed by Win Melton 03/12/2019 11:18 AM
[2019-03-12] MEDS ORDERED: LASIX IV ONE ×2 (13:09→15:00)
--- NOTE | 2019-03-12 21:26 | PROGRESS NOTE ---
DATE: 03/12/2019 SUBJECTIVE: The patient is resting comfortably. No acute events noted overnight. OBJECTIVE: Vital signs: Temperature 98.6 degrees, blood pressure 126/61, heart rate 113, respirations 20, O2 saturation 96% on 3 L nasal cannula. General: This is a chronically ill- appearing elderly male lying in bed in no acute distress. Heart: S1, S2 normal. Tachycardic. Lungs: Coarse breath sounds. Abdomen: Positive bowel sounds. Soft, nontender, nondistended. Extremities: No edema, no cyanosis. Neuro: The patient is awake and alert. LABS: Hemoglobin 9.6, hematocrit 29, platelets 404,000, white blood cell count 11. Sodium 133, potassium 3.7, chloride 99, CO2 22, BUN 5, creatinine 0.6, glucose 282. ASSESSMENT AND PLAN: 1. Healthcare acquired pneumonia. Continue with antibiotics, bronchodilator therapy, and supplemental oxygen. 2. Hypothyroidism. Continue on Tapazole. 3. Anemia. Stable. 4. Anxiety disorder. Continue on Xanax. 5. Seizure disorder. Continue on Keppra, Depakote and Vimpat. 6. Benign prostatic hypertrophy. Continue on Flomax. 7. Uncontrolled diabetes mellitus type 2. We will increase the patient's Levemir dosage to 30 units twice a day. Continue with sliding scale insulin. 8. Continue with physical therapy. cc: Cathy Blanc MD
[2019-03-12] MEDS ORDERED: INSULIN PEN NEEDLES ONE (21:55)
[2019-03-12] MEDS: XANAX PO PRN (22:17)
[2019-03-12] MEDS: DEPAKOTE ER PO SCH (22:26)
[2019-03-12] MEDS: LIPITOR PO SCH (22:33)
[2019-03-12] MEDS: CALTRATE 600 + D PO SCH (22:34)
[2019-03-12] MEDS: FLOMAX PO SCH (22:34)
[2019-03-13] MEDS: MAXIPIME 2 GM in NS 100 ML IV SCH ×2 (01:52→18:41)
[2019-03-13] MEDS: ZYVOX 600 MG/D5W 600 MG/300 ML IVPB IV SCH ×2 (01:53→13:57)
[2019-03-13] MEDS: LOVENOX SUBQ SCH ×2 (01:53→23:55)
[2019-03-13] MEDS: DUONEB (A & A) INH SCH ×4 (03:14→21:22)
[2019-03-13] MEDS ORDERED: D50W SYRINGE IV ONE (06:00)
[2019-03-13] MEDS: PRILOSEC PO SCH (06:07)
[2019-03-13] MEDS: HUMULIN R SUBQ SCH ×4 (06:10→22:25)
[2019-03-13 08:05] LABS: HEMATOCRIT 29.5 % (42.0-52.0); HEMOGLOBIN 9.5 g/dL (14.0-18.0); MCH 27.5 PG (27-31); MCHC 32.2 g/dL (33-37); MCV 85.5 FL (81-99); MPV 8.6 FL (7.4-10.4); RBC 3.45 XMIL (4.7-6.1); RDW 13.2 % (11.5-14.5); WBC 13.59 X1000 (4.8-10.8)
[2019-03-13 08:13] LABS: AGAP 12; BUN 5 mg/dL (8-22); CALCIUM 8.8 mg/dL (8.8-10.2); CHLORIDE 98 mmol/L (98-107); COSMO 269; CREATININE 0.6 mg/dL (0.7-1.2); ESTIMATED GFR > 60; GLUCOSE 59 mg/dL (70-104); POTASSIUM 3.2 mmol/L (3.5-5.1); SODIUM 137 mmol/L (136-145); TCO2 27 mmol/L (25-35)
[2019-03-13] MEDS: KEPPRA PO SCH ×2 (09:02→22:31)
[2019-03-13] MEDS: RISPERDAL PO SCH ×2 (09:02→22:29)
[2019-03-13] MEDS: COGENTIN PO SCH ×2 (09:02→22:29)
[2019-03-13] MEDS: CYMBALTA PO SCH (09:04)
[2019-03-13] MEDS: LEVEMIR SUBQ SCH (09:06)
[2019-03-13] MEDS: ASPIRIN EC PO SCH (09:07)
[2019-03-13] MEDS: XANAX PO SCH (09:08)
[2019-03-13] MEDS: VIMPAT PO SCH ×2 (09:09→21:08)
[2019-03-13] MEDS ORDERED: POTASSIUM CHLORIDE 20% LIQUID PO ONE ×2 (09:31→17:30)
[2019-03-13] MEDS: TAPAZOLE PO SCH ×2 (09:38→21:07)
[2019-03-13] MEDS: MUCOMYST 20% INH SCH ×2 (10:20→21:22)
[2019-03-13] MEDS ORDERED: LASIX IV ONE (14:40)
[2019-03-13] MEDS ORDERED: VANCOMYCIN IV PER PHARMACY MISC SCH (15:00)
--- NOTE | 2019-03-13 15:29 | PROGRESS NOTE ---
DATE: 03/13/2019 SUBJECTIVE: The patient is resting comfortable in bed. He had hypoglycemia this morning and received D50. OBJECTIVE: Vital Signs: Temperature 98 degrees, blood pressure 141/76, heart rate 93, respirations 20, O2 saturation is 96% on 2 nasal. General: This is a chronically ill- appearing, elderly male lying in bed, in no acute distress. Heart: S1, S2 normal. Regular rate and rhythm. Lungs: Equal air entry bilaterally. Coarse breath sounds. Abdomen: Positive bowel sounds. Soft, nontender, nondistended. Extremities: There is 1+ edema. Neurologic: The patient is alert and awake. LABS: White blood cell count 13, hemoglobin 9.5, hematocrit 29, platelets 425,000. Sodium 137, potassium 3.2, chloride 98, CO2 27, BUN 5, creatinine 0.,6 glucose 59. ASSESSMENT AND PLAN: 1. Right upper lobe pneumonia. Continue with antibiotic and bronchodilator therapy. Will consult with ID. 2. Pulmonary edema. Will give the patient a dose of Lasix today. 3. Hyperthyroidism. Continue on Tapazole. 4. Anemia. Stable. 5. Anxiety disorder. Continue on Xanax. 6. Seizure disorder. Continue on Keppra, Depakote, and Vimpat. 7. Benign prostatic hypertrophy. Continue on Flomax. 8. Diabetes mellitus type 2. We will decrease the patient's Levemir dosage. 9. Continue with physical therapy. cc: MD ALDA Perez
[2019-03-13] MEDS ORDERED: VANCOMYCIN 2 GM in NS 500 ML IV ONE (17:00)
[2019-03-13] MEDS: ZOSYN 3.375 GM in NS 50 ML IV SCH ×2 (17:35→21:07)
--- NOTE | 2019-03-13 20:02 | INFECTIOUS DISEASE CONSULT REP ---
DATE: 03/13/2019 CONCLUSION: The patient has a right upper lobe pneumonia. There has not been any improvement of the chest x-ray and the patient's white blood cell count is increasing. RECOMMENDATIONS: I have discontinued Zyvox and cefepime and placed the patient on a combination of vancomycin and Zosyn. I have also ordered a bladder scan. DISCUSSION: The patient lives in a [facility] and has dementia. I was unable to obtain any history from him and no family member was present. The patient was admitted to the hospital with pneumonia. His CBC shows a white count is up to 13,590, hemoglobin 9.5, platelet count is 425,000. Creatinine is 0.6. GFR is greater than 60. Blood and urine cultures are negative. CT scan of the chest shows a right upper lobe dense consolidation along with pulmonary venous congestion and bilateral pleural effusions. MEDICAL DISEASES: Positive for hypothyroidism, anxiety, depression disorder, seizure disorder, benign prostatic hypertrophy, diabetes mellitus, vascular dementia, hypertension and hyperlipidemia. There is no list of any surgery being performed on this patient. HOME MEDICATIONS: Include Xanax, Lipitor, Zyrtec, divalproex, Cymbalta, Pepcid, fluticasone, Neurontin, insulin, Vimpat, Keppra, Cozaar, meloxicam, metformin, Risperdal and Flomax. DRUG ALLERGIES: None known. PHYSICAL EXAMINATION: Vital Signs: Temperature is 98 degrees, pulse 93, respirations 20, blood pressure 141/76. The patient is 5 feet 10 inches tall, weighs 132 pounds. General: This is a chronically ill and malnourished-appearing, middle-aged male. He is in no acute distress. Head, eyes, ears, nose, and throat: He can hear my spoken words and see near objects. I did not see any white patches in his mouth. Neck: No meningismus. Lungs: Clear to auscultation. Cardiovascular: Heart rate is regular. Abdomen: Soft and nontender. Neurologic: The patient is awake. He did move his extremities to request. There was no tremor. He was unable to provide any history for me. Integument: No rash noted. Thank you for the consult. cc: Cesario Fuchs MD
[2019-03-13] MEDS: DEPAKOTE ER PO SCH (22:27)
[2019-03-13] MEDS: CULTURELLE PO SCH (22:30)
[2019-03-13] MEDS: FLOMAX PO SCH (22:30)
[2019-03-13] MEDS: LIPITOR PO SCH (22:31)
[2019-03-13] MEDS: CALTRATE 600 + D PO SCH (23:49)
[2019-03-13] MEDS: XANAX PO PRN (23:49)
[2019-03-14] MEDS: DUONEB (A & A) INH SCH ×4 (03:35→21:58)
[2019-03-14] MEDS: ZOSYN 3.375 GM in NS 50 ML IV SCH ×4 (03:40→23:51)
[2019-03-14] MEDS: VANCOMYCIN 1.5 GM in NS 250 ML IV SCH ×2 (06:33→17:50)
[2019-03-14] MEDS: HUMULIN R SUBQ SCH ×4 (06:38→21:39)
[2019-03-14] MEDS: PRILOSEC PO SCH (06:41)
--- NOTE | 2019-03-14 07:18 | Diag Imaging Result Doc PS360 ---
EXAM: CHEST-1 VIEW 03/14/2019 HISTORY: pneumonia TECHNIQUE: AP portable at 0547 COMMENT: There is dense alveolar opacification of the right upper lobe. The pulmonary edema present on 03/11/2019 has diminished somewhat. The heart size is also slightly diminished. IMPRESSION: Right upper lobe pneumonia. Improved pulmonary edema. Electronically signed by Angel Escudero 03/14/2019 7:15 AM
[2019-03-14 07:40] LABS: HEMATOCRIT 31.8 % (42.0-52.0); HEMOGLOBIN 10.3 g/dL (14.0-18.0); MCH 27.8 PG (27-31); MCHC 32.4 g/dL (33-37); MCV 85.7 FL (81-99); MPV 8.4 FL (7.4-10.4); RBC 3.71 XMIL (4.7-6.1); RDW 13.3 % (11.5-14.5); WBC 9.22 X1000 (4.8-10.8)
[2019-03-14 07:58] LABS: AGAP 13; BUN 6 mg/dL (8-22); CHLORIDE 100 mmol/L (98-107); COSMO 278; CREATININE 0.7 mg/dL (0.7-1.2); ESTIMATED GFR > 60; GLUCOSE 184 mg/dL (70-104); SODIUM 138 mmol/L (136-145); TCO2 25 mmol/L (25-35)
[2019-03-14] MEDS: MUCOMYST 20% INH SCH ×2 (10:23→21:58)
[2019-03-14] MEDS: KEPPRA PO SCH ×2 (12:19→21:38)
[2019-03-14] MEDS: CULTURELLE PO SCH ×2 (12:19→21:38)
[2019-03-14] MEDS: COGENTIN PO SCH ×2 (12:19→21:38)
[2019-03-14] MEDS: VIMPAT PO SCH ×2 (12:19→21:37)
[2019-03-14] MEDS: RISPERDAL PO SCH ×2 (12:20→21:38)
[2019-03-14] MEDS: XANAX PO SCH (12:20)
[2019-03-14] MEDS: ASPIRIN EC PO SCH (12:20)
[2019-03-14] MEDS: TAPAZOLE PO SCH ×2 (12:20→21:37)
[2019-03-14] MEDS: CYMBALTA PO SCH (12:20)
[2019-03-14] MEDS: LEVEMIR SUBQ SCH (12:31)
--- NOTE | 2019-03-14 16:06 | PROGRESS NOTE ---
DATE: 03/14/2019 SUBJECTIVE: The patient is resting comfortably in bed. No acute events noted overnight. OBJECTIVE: Vital Signs: Temperature is 97.8 degrees, blood pressure 135/70, heart rate 105, respirations 16, O2 saturation is 97% on 2 L nasal cannula. General: This is an elderly male, lying in bed in no acute distress. Heart: S1, S2 normal, tachycardic. Lungs: Coarse breath sounds. Abdomen: Positive bowel sounds. Soft, nontender, nondistended. Extremities: 1+ edema. Neurologic: The patient is awake and alert. DIAGNOSTIC STUDIES: Hemoglobin 10, hematocrit 31, platelets 440,000, white blood cell count 9.2. Sodium 138, potassium 4, chloride 100, CO2 of 25, BUN 6, creatinine 0.7, glucose 184. Chest x-ray shows right upper lobe pneumonia, improved pulmonary edema. ASSESSMENT AND PLAN: 1. Right upper lobe pneumonia. Continue on the current antibiotic regimen as directed by Dr. Fuchs. 2. Pulmonary edema. Improved. 3. Hyperthyroidism. Continue on Tapazole. 4. Seizure disorder. Continue on Xanax. 5. Anemia. Stable. 6. Seizure disorder. Continue on Keppra, Depakote, and Vimpat. 7. Diabetes mellitus, type 2. Continue on Levemir and sliding scale insulin. 8. Benign prostatic hypertrophy. Continue on Flomax. 9. Continue with physical therapy. DISPOSITION: Once the patient is stable, he will be discharged to [facility]. cc: Cathy Blanc MD MTDD
--- NOTE | 2019-03-14 16:19 | EKG Report ---
Test Performed on : 03/14/2019 4:04:18 PM Test Reason : tachycardia Blood Pressure : / mmHG Vent. Rate : 114 BPM Atrial Rate : 114 BPM P-R Int : 140 ms QRS Dur : 106 ms QT Int : 356 ms P-R-T Axes : 058 -45 097 degrees QTc Int : 490 ms Sinus tachycardia. Left anterior fascicular block Minimal voltage criteria for LVH, may be normal variant Septal infarct (cited on or before 17-MAY-2012) Nonspecific T wave abnormality Abnormal ECG When compared with ECG of 17-MAY-2012 15:29, Vent. rate has increased BY 38 BPM QRS duration has increased Questionable change in initial forces of Septal leads Nonspecific T wave abnormality has replaced inverted T waves in Anterior leads Confirmed by Raúl Huggins MD ([id number]) on 03/16/2019 6:17:00 PM
--- NOTE | 2019-03-14 20:43 | INFECTIOUS DISEASE PROGRESS NO ---
DATE: 03/14/2019 PRESENT ILLNESS: Mr. Russell has a right upper lobe pneumonia. His leukocytosis today has resolved. MEDICATIONS: Yesterday, he was started on vancomycin IV per pharmacy dosing and Zosyn 3.375 g IV every 6 hours. PHYSICAL EXAMINATION: Vital Signs: Temperature is 97.8 degrees, pulse rate 115, respiratory rate 16, blood pressure 135/70, O2 saturation is 97% on room air. General: This is a chronically ill- appearing, middle-aged gentleman. He is lying in bed, confused and inappropriate. HEENT: Atraumatic, normocephalic. Oral mucous membranes are pink and moist. Conjunctivae are pink. Neck: Supple. Trachea is midline. Respiratory: Coarse lung sounds noted scattered bilaterally. No work of breathing is noted. Cardiovascular: Heart rate is regular. Abdomen: Soft, round and nontender. Bowel sounds are active. Neurologic: He is awake, alert, and oriented to person and place only. He is moving around in the bed with generalized weakness noted. LABORATORY AND X-RAY: Today, his white count is 9.22, hemoglobin 10.3, platelet count 440,000, creatinine is 0.7. Estimated GFR is greater than 60. Stool for C difficile toxin and antigen are both negative. Blood and urine cultures have shown no growth. EKG done today shows sinus tachycardia on an unconfirmed report. Chest x-ray done earlier this morning shows right upper lobe pneumonia with improved pulmonary edema. ASSESSMENT AND PLAN: Mr. Sinclair is being treated for a persistent right upper lobe pneumonia, and yesterday was started on vancomycin and Zosyn, which we will continue at this time. His white count has gone back to normal and a chest x-ray today shows a decrease in pulmonary edema. We will continue with current medications. Blood work has already been ordered for in the morning. These plans have been discussed with and recommended by Dr. Fuchs. COMORBIDITIES: For Mr. Sinclair include that he is a halfway patient with dementia, seizure disorder, and diabetes mellitus. Dictated by LINNETTE Hagan for Cesario Fuchs MD cc: Cesario Fuchs MD [facility]
[2019-03-14] MEDS: FLOMAX PO SCH (21:37)
[2019-03-14] MEDS: DEPAKOTE ER PO SCH (21:37)
[2019-03-14] MEDS: CALTRATE 600 + D PO SCH (21:37)
[2019-03-14] MEDS: LIPITOR PO SCH (21:38)
[2019-03-14] MEDS: LOVENOX SUBQ SCH (23:51)
[2019-03-15] MEDS: DUONEB (A & A) INH SCH ×4 (03:41→19:31)
[2019-03-15] MEDS: ZOSYN 3.375 GM in NS 50 ML IV SCH ×4 (04:38→21:14)
[2019-03-15] MEDS: VANCOMYCIN 1.5 GM in NS 250 ML IV SCH (04:39)
[2019-03-15] MEDS: HUMULIN R SUBQ SCH ×3 (06:21→17:11)
[2019-03-15] MEDS: PRILOSEC PO SCH (06:22)
--- NOTE | 2019-03-15 08:08 | Diag Imaging Result Doc PS360 ---
EXAM: CHEST-1 VIEW 03/15/2019 HISTORY: pneumonia TECHNIQUE: AP portable at 0458 COMMENT: There is dense alveolar opacification in the right upper lobe. This was also present on 03/14/2019. There has been no appreciable change. IMPRESSION: Right upper lobe pneumonia. Electronically signed by Angel Escudero 03/15/2019 8:06 AM
[2019-03-15 08:16] LABS: HEMOGLOBIN 9.4 g/dL (14.0-18.0); MCH 27.6 PG (27-31); MCHC 32.4 g/dL (33-37); MPV 8.4 FL (7.4-10.4); RBC 3.41 XMIL (4.7-6.1); RDW 13.4 % (11.5-14.5); WBC 8.56 X1000 (4.8-10.8)
[2019-03-15] MEDS: ASPIRIN EC PO SCH (08:26)
[2019-03-15] MEDS: XANAX PO SCH (08:26)
[2019-03-15] MEDS: TAPAZOLE PO SCH ×2 (08:26→21:15)
[2019-03-15] MEDS: CULTURELLE PO SCH ×2 (08:26→21:15)
[2019-03-15] MEDS: RISPERDAL PO SCH ×2 (08:26→21:16)
[2019-03-15] MEDS: CYMBALTA PO SCH (08:26)
[2019-03-15] MEDS: VIMPAT PO SCH ×2 (08:26→21:18)
[2019-03-15] MEDS: COGENTIN PO SCH ×2 (08:26→21:16)
[2019-03-15] MEDS: LEVEMIR SUBQ SCH (08:26)
[2019-03-15] MEDS: KEPPRA PO SCH ×2 (08:26→21:16)
[2019-03-15 08:35] LABS: MAGNESIUM 1.9 mg/dL (1.5-2.7); PHOSPHORUS 4.4 mg/dL (2.7-4.5)
[2019-03-15 08:46] LABS: AGAP 11; BUN 6 mg/dL (8-22); CALCIUM 8.3 mg/dL (8.8-10.2); CHLORIDE 101 mmol/L (98-107); COSMO 274; CREATININE 0.9 mg/dL (0.7-1.2); ESTIMATED GFR > 60; GLUCOSE 107 mg/dL (70-104); POTASSIUM 3.2 mmol/L (3.5-5.1); SODIUM 138 mmol/L (136-145); TCO2 26 mmol/L (25-35)
[2019-03-15] MEDS: MUCOMYST 20% INH SCH ×2 (09:30→19:31)
--- NOTE | 2019-03-15 17:27 | PROGRESS NOTE ---
DATE: 03/15/2019 A 63[facility]-old [facility] with altered [facility] status. He came from [facility], unclear what his baseline was. Did have significant dementia. Does have a history of tobacco use. His medications have not been resolved at the time of admission but he apparently is fairly altered mental status, could not give much information and was admitted to the hospital. He was found to have pneumonia. [place] it was hospital-acquired from broad-spectrum antibiotics, questionable urinary tract infection, put on empiric antibiotics and in hyperthyroid state, he remains afebrile, temperature 97.9 degrees, pulse 100, respirations 17, blood pressure 156/76. Pupils are equal, round. Lungs: Are clear in all lung smith. Cardiovascular: Regular rhythm, rate without murmur or S3. Abdomen: Is soft. Skin: Is warm and dry. DATA: Chest x-ray from this morning, right upper lobe pneumonia. ASSESSMENT AND PLAN: 1. Right upper lobe pneumonia. Continue present antibiotic regimen. 2. Pulmonary edema which is improved. 3. Hyperthyroidism. Continue Tapazole. 4. Seizure disorder. Continue Xanax. 5. Anemia. 6. Seizure disorder on Keppra, Depakote and Vimpat. 7. Diabetes mellitus type 2. Continue sliding scale. 8. Benign prostatic hypertrophy on Flomax. 9. Continue physical therapy. Review of his orders I do not see any change at this point. LAB: Potassium was a little bit low. Will give him some p.o. potassium. cc: Elver Sanchez MD
[2019-03-15] MEDS: KLOR-CON PO SCH (17:33)
--- NOTE | 2019-03-15 18:16 | INFECTIOUS DISEASE PROGRESS NO ---
DATE: 03/15/2019 PRESENT ILLNESS: Mr. Sinclair is being treated for right upper lobe pneumonia. MEDICATIONS: He is on day 2 of vancomycin IV per pharmacy dosing and Zosyn 3.375 g IV every 6 hours. PHYSICAL EXAMINATION: Vital Signs: Temperature is 98.3 degrees, pulse rate 106, respiratory rate 14, blood pressure 144/71, O2 saturation is 99% on room air. General: This is a chronically ill appearing, confused, middle-aged gentleman. He is lying in bed, currently in no acute distress. HEENT: Atraumatic, normocephalic. Oral mucous membranes are pink and dry. Conjunctiva are pale. Neck: Supple. Trachea is midline. Cardiovascular: Heart rate is regular. Mild systolic murmur is noted. Respiratory: Lung sounds are clear to auscultation. Diminished in the bases. No work of breathing is noted. Abdomen: Soft, round, nontender. Bowel sounds are active. Neurologic: He is awake, alert, and oriented to person and place only. He has just had a bath and is somewhat irritable at this time. He is able to move all his extremities with generalized weakness noted in the bed. LABORATORY AND X-RAY: Today his white count is 8.56, hemoglobin 9.4, platelet count 414,000. Creatinine is 0.9. Estimated GFR is greater than 60. Chest x-ray done this morning shows no change in the right upper lobe pneumonia. ASSESSMENT AND PLAN: Mr. Sinclair is being treated for right upper lobe pneumonia using vancomycin and Zosyn. His white count is normal and he has been afebrile. At this point he is on day 2 of his current antibiotic regimen which we will continue. We will also order blood work for in the morning and keep a close eye on his creatinine. These plans have been discussed with and recommended by Dr. Fuchs. COMORBIDITIES: Include that he is a shelter patient with dementia, seizure disorder, anxiety disorder and diabetes mellitus. Dictated by LINNETTE Hagan for Cesario Fuchs MD cc: Cesario Fuchs MD [facility]
[2019-03-15] MEDS: DEPAKOTE ER PO SCH (21:14)
[2019-03-15] MEDS: FLOMAX PO SCH (21:15)
[2019-03-15] MEDS: CALTRATE 600 + D PO SCH (21:15)
[2019-03-15] MEDS: LIPITOR PO SCH (21:16)
[2019-03-15] MEDS: LOVENOX SUBQ SCH (21:16)
[2019-03-16] MEDS: HUMULIN R SUBQ SCH ×5 (02:04→21:06)
[2019-03-16] MEDS: DUONEB (A & A) INH SCH ×5 (03:03→21:24)
[2019-03-16] MEDS: ZOSYN 3.375 GM in NS 50 ML IV SCH ×2 (03:56→09:23)
[2019-03-16] MEDS: PRILOSEC PO SCH (06:13)
[2019-03-16 07:16] LABS: BASO# 0.02 X1000 (0.0-0.2); BASO% 0.1 % (0.0-0.8); EOS# 0.14 X1000 (0.0-0.7); EOS% 0.9 % (0.0-10.0); HEMATOCRIT 29.6 % (42.0-52.0); HEMOGLOBIN 9.5 g/dL (14.0-18.0); IMM GRAN# 0.04 X1000 (0.0-0.04); IMM GRAN% 0.2 % (0.0-0.5); LYMPH# 0.83 X1000 (1.2-3.4); LYMPH% 5.1 % (20.5-51.1); MCH 27.1 PG (27-31); MCHC 32.1 g/dL (33-37); MCV 84.3 FL (81-99); MONO# 1.94 X1000 (0.11-0.59); MPV 8.4 FL (7.4-10.4); NEUT# 13.25 X1000 (1.4-6.5); NEUT% 81.7 % (42.2-75.2); PLT 370 X1000 (130-400); RBC 3.51 XMIL (4.7-6.1); RDW 13.4 % (11.5-14.5); WBC 16.22 X1000 (4.8-10.8)
[2019-03-16 07:59] LABS: AGAP 13; BUN 8 mg/dL (8-22); CALCIUM 8.2 mg/dL (8.8-10.2); CHLORIDE 99 mmol/L (98-107); COSMO 278; CREATININE 1.2 mg/dL (0.7-1.2); ESTIMATED GFR > 60; GLUCOSE 242 mg/dL (70-104); POTASSIUM 3.7 mmol/L (3.5-5.1); SODIUM 136 mmol/L (136-145); TCO2 24 mmol/L (25-35)
[2019-03-16] MEDS: VIMPAT PO SCH ×2 (09:20→21:14)
[2019-03-16] MEDS: XANAX PO SCH (09:20)
[2019-03-16] MEDS: KEPPRA PO SCH ×2 (09:20→21:15)
[2019-03-16] MEDS: KLOR-CON PO SCH (09:20)
[2019-03-16] MEDS: ASPIRIN EC PO SCH (09:20)
[2019-03-16] MEDS: COGENTIN PO SCH ×2 (09:21→21:14)
[2019-03-16] MEDS: RISPERDAL PO SCH ×2 (09:21→21:16)
[2019-03-16] MEDS: CYMBALTA PO SCH (09:21)
[2019-03-16] MEDS: CULTURELLE PO SCH ×2 (09:21→21:15)
[2019-03-16] MEDS: LEVEMIR SUBQ SCH (09:22)
[2019-03-16] MEDS: TAPAZOLE PO SCH ×2 (09:22→21:15)
[2019-03-16] MEDS: MUCOMYST 20% INH SCH ×2 (09:38→21:24)
--- NOTE | 2019-03-16 14:02 | PROGRESS NOTE ---
DATE: 03/16/2019 SUBJECTIVE: Mr. Sinclair says he is feeling better. He is feeling a little stronger. I think his breathing has been comfortable. OBJECTIVE: Temperature 98.5 degrees, pulse 111, respirations 20, blood pressure 135/78. Pupils are equal and round. Lungs are clear in all lung smith. Cardiovascular Examination: Regular rhythm and rate without murmur or S3. Abdomen is soft. Skin is warm and dry. Blood sugars 162, 317, 190. ASSESSMENT/PLAN: 1. Right upper lobe pneumonia. Continue present antibiotic regimen. Seems to be improving. 2. Pulmonary edema, which improved. 3. Hypothyroidism, on Tapazole. 4. Seizure disorder. He is on his Xanax. He is also on Depakote 750 mg at bedtime. 5. Right upper lobe pneumonia. Getting 2 g of vancomycin per pharmacy, Zosyn 3.375 g intravenous every 6 hours. 6. Diabetes mellitus type 2. Sugar is under good control. 7. Benign prostatic hypertrophy. 8. Continue his physical therapy. Continue mechanical soft diet. REVIEW OF ORDERS: He is on Lipitor 40 mg at bedtime, calcium carbonate with vitamin one at bedtime, Depakote ER 750 mg at bedtime, risperidone 1.5 mg p.o. at bedtime, Flomax 0.4 mg at bedtime, acetylcysteine 20% inhalations b.i.d., albuterol ipratropium treatment q.6 hours, Xanax 0.25 mg q.8 hours p.r.n., aspirin 81 mg a day, Cogentin 0.5 mg p.o. b.i.d., Cymbalta 30 mg daily, Lovenox 30 mg subcutaneous q.24 hours, Vimpat 100 mg p.o. b.i.d., lactobacillus rhamnosus 1 tablet b.i.d., Keppra 500 mg p.o. b.i.d., Tapazole 10 mg b.i.d., Prilosec 40 mg a day, Risperdal 1 mg daily, and Zosyn 3.375 g IV q.6. His last chest x-ray yesterday with right upper lobe pneumonia. cc: Elver Sanchez MD
[2019-03-16 14:27] LABS: INR 1.14; PROTIME 15.5 Seconds (11.0-16.0)
--- NOTE | 2019-03-16 14:56 | INFECTIOUS DISEASE PROGRESS NO ---
DATE: 03/16/2019 PRESENT ILLNESS: The patient is being treated for right upper lobe pneumonia. MEDICATIONS: This is day 3 of treatment with vancomycin and Zosyn. PHYSICAL EXAMINATION: Vital Signs: Temperature is 98.5 degrees, pulse 111, respirations 20, blood pressure 135/78. General: This is a clinically ill-appearing, confused, middle-aged male. He is in no acute distress. Head, eyes, ears, nose, and throat: Can hear my spoken words and see near objects. He does not have any white patches in his mouth. Neck: No meningismus. Lungs: Clear to auscultation. Cardiovascular: Heart rate is regular. Abdomen: Soft and nontender. Neurologic: The patient is awake. He can move his extremities. There is no tremor. When I ask him a question, he starts talking but I cannot understand what he is saying. LAB AND X-RAY: Chest x-ray shows continued right upper lobe pneumonia. [place] [address], hemoglobin 9.5, and platelet count 370,000. The patient's creatinine is 1.2. GFR is greater than 60. ASSESSMENT AND PLAN: The patient has pneumonia. My plan is to continue with his current antibiotics. COMORBIDITIES: [facility]. The patient has dementia and a seizure disorder as well as an anxiety disorder and diabetes mellitus. cc: Cesario Fuchs MD
--- NOTE | 2019-03-16 15:12 | INFECTIOUS DISEASE PROGRESS NO ---
DATE: 03/16/2019 ADDENDUM: I discussed the patient's case with Dr. Sanchez. We plan now for the patient to go back to his residential with the PICC in place and will give him IV antibiotics. One will be cefepime 1 g IV every 12 hours and the other will be vancomycin, the dose of which is not yet certain. I plan to treat the patient anywhere from 7 to 10 days with the IV antibiotics. cc: Cesario Fuchs MD
[2019-03-16] MEDS ORDERED: LASIX ONE (18:12)
[2019-03-16] MEDS ORDERED: DUONEB (A & A) INH PRN (18:13)
--- NOTE | 2019-03-16 18:24 | Diag Imaging Result Doc PS360 ---
EXAM: CHEST-PORTABLE 03/16/2019 HISTORY: difficulty breathing TECHNIQUE: AP portable upright at 1817 COMMENT: There is increasing interstitial and alveolar opacity bilaterally in addition to the dense consolidation in the right upper lobe which was present on 03/15/2019. IMPRESSION: Right upper lobe pneumonia. Pulmonary edema. Electronically signed by Angel Escudero 03/16/2019 6:22 PM
[2019-03-16 18:34] LABS: ALLEN TEST YES; BE -0.7 mmoll (-3.0-3.0); BLOOD TYPE ARTERIAL; HCO3-(ACT) 24.4 mmoll (20.0-26.0); METHB 1.3 % (0.0-1.5); O2(CT) 12.9 mL/dL (15.0-23.0); O2HB 95.8 % (95.0-99.0); PCO2(98.6) 34 mmHg (35-45); PO2(98.6) 89 mmHg (60-100); SAMPLE BLOOD; SAO2 99.5 % (95.0-100.0); THB 9.5 g/dL (11.5-17.4); pH(98.6) 7.44 (7.35-7.45)
[2019-03-16 18:35] LABS: MODALITY VENTIMASK
[2019-03-16 19:02] LABS: BASO# 0.04 X1000 (0.0-0.2); BASO% 0.2 % (0.0-0.8); EOS% 0.9 % (0.0-10.0); HEMATOCRIT 30.4 % (42.0-52.0); HEMOGLOBIN 9.7 g/dL (14.0-18.0); IMM GRAN# 0.08 X1000 (0.0-0.04); IMM GRAN% 0.4 % (0.0-0.5); LYMPH# 0.77 X1000 (1.2-3.4); LYMPH% 3.4 % (20.5-51.1); MCH 27.5 PG (27-31); MCHC 31.9 g/dL (33-37); MCV 86.1 FL (81-99); MONO# 2.88 X1000 (0.11-0.59); MONO% 12.7 % (1.7-9.3); MPV 8.4 FL (7.4-10.4); NEUT# 18.71 X1000 (1.4-6.5); NEUT% 82.4 % (42.2-75.2); PLT 349 X1000 (130-400); RBC 3.53 XMIL (4.7-6.1); RDW 13.6 % (11.5-14.5); WBC 22.68 X1000 (4.8-10.8)
[2019-03-16 19:16] LABS: AGAP 16; BUN 8 mg/dL (8-22); CALCIUM 7.8 mg/dL (8.8-10.2); CHLORIDE 99 mmol/L (98-107); COSMO 275; CREATININE 1.1 mg/dL (0.7-1.2); ESTIMATED GFR > 60; GLUCOSE 177 mg/dL (70-104); SODIUM 136 mmol/L (136-145); TCO2 21 mmol/L (25-35)
[2019-03-16 19:27] LABS: LYMPHS 3 % (21-51); MONO 7 % (1-9); SEGS 90 % (42-75)
[2019-03-16] MEDS: MAXIPIME 1 GM in NS 50 ML IV SCH (21:09)
[2019-03-16] MEDS: CALTRATE 600 + D PO SCH (21:15)
[2019-03-16] MEDS: LOVENOX SUBQ SCH (21:17)
[2019-03-16] MEDS: LIPITOR PO SCH (21:17)
[2019-03-16] MEDS: FLOMAX PO SCH (21:17)
[2019-03-16] MEDS: DEPAKOTE ER PO SCH (21:18)
[2019-03-17] MEDS: DUONEB (A & A) INH SCH ×4 (03:14→22:11)
--- NOTE | 2019-03-17 04:50 | EKG Report ---
Test Performed on : 03/16/2019 5:55:59 PM Test Reason : elevated HR Blood Pressure : / mmHG Vent. Rate : 152 BPM Atrial Rate : 152 BPM P-R Int : 162 ms QRS Dur : 098 ms QT Int : 318 ms P-R-T Axes : 041 -48 117 degrees QTc Int : 505 ms Sinus tachycardia. Left anterior fascicular block Left ventricular hypertrophy with repolarization abnormality T wave inversion in Anterolateral leads Cannot rule out Anteroseptal infarct (cited on or before 17-MAY-2012) Abnormal ECG When compared with ECG of 14-MAR-2019 16:04, (Unconfirmed) Questionable change in initial forces of Anteroseptal leads T wave inversion now evident in Anterolateral leads Confirmed by Joseluis PATEL, Raúl ([id number]) on 03/20/2019 9:48:31 PM
[2019-03-17] MEDS: MAXIPIME 1 GM in NS 50 ML IV SCH ×2 (06:41→18:15)
[2019-03-17] MEDS: PRILOSEC PO SCH (06:42)
[2019-03-17] MEDS: HUMULIN R SUBQ SCH ×3 (06:42→16:18)
[2019-03-17 07:26] LABS: BASO# 0.02 X1000 (0.0-0.2); BASO% 0.1 % (0.0-0.8); EOS# 0.14 X1000 (0.0-0.7); HEMATOCRIT 26.5 % (42.0-52.0); HEMOGLOBIN 8.6 g/dL (14.0-18.0); LYMPH# 0.84 X1000 (1.2-3.4); LYMPH% 5.8 % (20.5-51.1); MCH 28.2 PG (27-31); MCHC 32.5 g/dL (33-37); MCV 86.9 FL (81-99); MONO# 2.29 X1000 (0.11-0.59); MONO% 15.9 % (1.7-9.3); MPV 8.5 FL (7.4-10.4); NEUT# 11.11 X1000 (1.4-6.5); NEUT% 77.2 % (42.2-75.2); PLT 298 X1000 (130-400); RBC 3.05 XMIL (4.7-6.1); RDW 13.6 % (11.5-14.5)
[2019-03-17] MEDS ORDERED: INSULIN PEN NEEDLES ONE (08:09)
[2019-03-17] MEDS: CULTURELLE PO SCH ×2 (08:55→21:00)
[2019-03-17] MEDS: COGENTIN PO SCH ×2 (08:55→21:00)
[2019-03-17] MEDS: RISPERDAL PO SCH ×2 (08:55→21:00)
[2019-03-17] MEDS: KLOR-CON PO SCH (08:55)
[2019-03-17] MEDS: TAPAZOLE PO SCH ×2 (08:55→20:58)
[2019-03-17] MEDS: VANCOMYCIN 1 GM/NS 1 GM/250 ML IVPB IV SCH (08:55)
[2019-03-17] MEDS: XANAX PO SCH (08:55)
[2019-03-17] MEDS: CYMBALTA PO SCH (08:55)
[2019-03-17] MEDS: ASPIRIN EC PO SCH (08:56)
[2019-03-17] MEDS: VIMPAT PO SCH ×2 (08:56→20:59)
[2019-03-17] MEDS: LEVEMIR SUBQ SCH (08:56)
[2019-03-17] MEDS: KEPPRA PO SCH ×2 (08:56→21:00)
[2019-03-17] MEDS ORDERED: VANCOMYCIN 1,500 MG in NS 250 ML IV SCH (09:00)
[2019-03-17] MEDS: MUCOMYST 20% INH SCH ×2 (09:21→22:11)
[2019-03-17] MEDS ORDERED: NS 250 ML ONE (12:08)
--- NOTE | 2019-03-17 13:22 | PROGRESS NOTE ---
DATE: 03/17/2019 SUBJECTIVE: Mr. Sinclair is feeling good this morning, breathing comfortably. OBJECTIVE: Vital Signs: Temperature 99.5 degrees, pulse 117, respirations 16, blood pressure 129/63. HEENT: Pupils are equal and round. Lungs: Clear in all lung smith. Cardiovascular: Regular rhythm and rate without murmur or S3. Abdomen: Soft. Skin: Warm and dry. No pedal edema. IMAGING AND LABORATORY DATA: Blood sugars 175, 194, 244. Chest x-ray from yesterday evening: Right upper lobe pneumonia, pulmonary edema. ASSESSMENT AND PLAN: 1. Will try and get him set up to go the senior care, put a peripherally-inserted central catheter line in, give him intravenous antibiotics, cefepime 1 gram every 12 hours, and vancomycin. He will need at least 7 to 10 days of antibiotics, and see if we can get that set up for him. 2. Pulmonary edema, which is improved. 3. Hypothyroidism, on Tapazole. 4. Seizure disorder. He is on Xanax and Depakote. 5. Right upper lobe pneumonia. As above. 6. Diabetes mellitus type 2. 7. Benign prostatic hypertrophy. 8. Continue physical therapy. Will check another chest x-ray in the morning. LABORATORY DATA: Review of lab from today shows white count is down to 14,400, hematocrit is 26, hemoglobin 8.6, platelet count 298,000. Sodium 136, potassium 4.0, chloride 99, BUN 18, creatinine 1.1. ASSESSMENT: Diabetes mellitus type 2. Sugar is still running a little high. Continue to follow. REVIEW OF ORDERS: He is on Lipitor 40 mg a day, calcium carbonate 1 at bedtime, Depakote ER 750 mg at bedtime, Risperdal 1.5 mg at bedtime, Flomax 0.4 mg a day, Mucomyst 3 mL inhalation b.i.d., Xanax 0.25 mg p.o. every 8 hours p.r.n., aspirin 81 mg a day, Cogentin 0.5 mg p.o. b.i.d., Cymbalta 30 mg daily, Lovenox 30 mg subcutaneously every 24 hours, Levemir 25 units subcutaneously daily, Vimpat 100 mg b.i.d., Culturelle 1 b.i.d., Keppra 500 mg b.i.d., Tapazole 10 mg b.i.d., Risperdal 1 mg daily, I think he gets 1 mg in the morning and 1.5 at night, and then he is getting Vancomycin and cefepime. He has a PICC line placed, so see if we can get him back to the senior care. We will check another chest x-ray in the morning, CBC, and basic metabolic profile. cc: Elver Sanchez MD
--- NOTE | 2019-03-17 14:41 | INFECTIOUS DISEASE PROGRESS NO ---
DATE: 03/17/2019 PRESENT ILLNESS: The patient has a right upper lobe pneumonia. MEDICATIONS: This is day 4 of treatment with antibiotics for the patient's pneumonia. Currently, the patient is getting vancomycin 1 gram IV every 24 hours, and cefepime 1 gram IV every 12 hours. PHYSICAL EXAMINATION: Vital Signs: Temperature is 99.5 degrees, pulse 117, respirations 16, blood pressure 129/63. General: This is an ill-appearing, middle-aged male. He is in no acute distress. HEENT: He does not have any drainage coming from his nose or ears. He did not respond to verbal stimuli. Neck: No meningismus. Lungs: Clear to auscultation. Cardiovascular: Heart rate is regular. Abdomen: Soft and nontender. Extremities: The patient has a PICC in his right arm. The site is not erythematous or swollen. Neurologic: The patient is lethargic. He did not respond to verbal stimuli. He does not have a tremor. When I asked him a question, he did not answer it. IMAGING AND LABORATORY DATA: CBC shows a white count of 14,400, hemoglobin 8.6, and platelet count 298,000. Creatinine is 1.2. There is no new radiographic study today. ASSESSMENT AND PLAN: The patient has pneumonia. His white count is up, and his creatinine is up a little bit. The plan is to [facility] the [facility] I am going to get tomorrow morning, a CBC, BMP, and portable chest x-ray. Hopefully, the white blood cell count will be down, and the patient's pneumonia is getting better, and if that is the case, then will send the patient back to the [facility] on intravenous vancomycin and cefepime. COMORBIDITIES: The [facility] a [facility]. He has dementia and a seizure disorder, as well as anxiety disorder and diabetes mellitus. cc: Cesario Fuchs MD
[2019-03-17] MEDS: DEPAKOTE ER PO SCH (20:59)
[2019-03-17] MEDS: XANAX PO PRN (20:59)
[2019-03-17] MEDS: CALTRATE 600 + D PO SCH (21:00)
[2019-03-17] MEDS: LIPITOR PO SCH (21:00)
[2019-03-17] MEDS: FLOMAX PO SCH (21:00)
[2019-03-18] MEDS: HUMULIN R SUBQ SCH ×4 (02:35→16:48)
[2019-03-18] MEDS: DUONEB (A & A) INH SCH ×3 (03:42→15:45)
[2019-03-18] MEDS: LOVENOX SUBQ SCH (05:48)
[2019-03-18] MEDS: MAXIPIME 1 GM in NS 50 ML IV SCH ×2 (05:48→16:46)
[2019-03-18 07:10] LABS: BASO# 0.02 X1000 (0.0-0.2); BASO% 0.2 % (0.0-0.8); EOS# 0.18 X1000 (0.0-0.7); EOS% 1.5 % (0.0-10.0); HEMOGLOBIN 8.6 g/dL (14.0-18.0); IMM GRAN# 0.03 X1000 (0.0-0.04); IMM GRAN% 0.2 % (0.0-0.5); LYMPH# 1.04 X1000 (1.2-3.4); LYMPH% 8.6 % (20.5-51.1); MCH 27.2 PG (27-31); MCHC 31.9 g/dL (33-37); MCV 85.4 FL (81-99); MONO# 1.94 X1000 (0.11-0.59); MPV 8.7 FL (7.4-10.4); NEUT# 8.94 X1000 (1.4-6.5); NEUT% 73.5 % (42.2-75.2); PLT 298 X1000 (130-400); RBC 3.16 XMIL (4.7-6.1); RDW 13.9 % (11.5-14.5); WBC 12.15 X1000 (4.8-10.8)
[2019-03-18 07:33] LABS: AGAP 14; BUN 10 mg/dL (8-22); CALCIUM 8.4 mg/dL (8.8-10.2); CHLORIDE 101 mmol/L (98-107); COSMO 273; CREATININE 1.2 mg/dL (0.7-1.2); ESTIMATED GFR > 60; GLUCOSE 100 mg/dL (70-104); POTASSIUM 3.7 mmol/L (3.5-5.1); SODIUM 137 mmol/L (136-145); TCO2 22 mmol/L (25-35)
[2019-03-18] MEDS: MUCOMYST 20% INH SCH (07:48)
--- NOTE | 2019-03-18 08:34 | Diag Imaging Result Doc PS360 ---
EXAM: CHEST-1 VIEW INDICATION: pneumonia TECHNIQUE: One view COMPARISON: 03/16/2019 FINDINGS: There has been interval placement of a right PICC line. The tip projects over the lower SVC just superior to the atriocaval junction in the expected position. The dense right upper lobe consolidation suggesting pneumonia is approximately stable given differences in inspiration. The interstitial and airspace opacities seen diffusely throughout the remainder of the lungs most consistent with pulmonary edema are also essentially stable. No definite new consolidation is identified. Cardiac silhouette is stable. IMPRESSION: Interval placement of right PICC line. Essentially stable chest, otherwise. Electronically signed by Win Melton 03/18/2019 8:31 AM
[2019-03-18] MEDS: VANCOMYCIN 1 GM/NS 1 GM/250 ML IVPB IV SCH (09:36)
[2019-03-18] MEDS: KEPPRA PO SCH (09:39)
[2019-03-18] MEDS: CULTURELLE PO SCH (09:39)
[2019-03-18] MEDS: PRILOSEC PO SCH (09:39)
[2019-03-18] MEDS: COGENTIN PO SCH (09:39)
[2019-03-18] MEDS: KLOR-CON PO SCH (09:39)
[2019-03-18] MEDS: RISPERDAL PO SCH (09:39)
[2019-03-18] MEDS: XANAX PO SCH (09:39)
[2019-03-18] MEDS: CYMBALTA PO SCH (09:40)
[2019-03-18] MEDS: LEVEMIR SUBQ SCH (09:40)
[2019-03-18] MEDS: VIMPAT PO SCH (09:40)
[2019-03-18] MEDS: TAPAZOLE PO SCH (09:40)
[2019-03-18] MEDS: ASPIRIN EC PO SCH (09:40)
--- NOTE | 2019-03-18 15:07 | DISCHARGE SUMMARY ---
ADMISSION DATE: 03/07/2019 DISCHARGE DATE: 03/18/2019 HISTORY: This is a 63-year-old patient with no primary care physician from the group home, transferred because of altered mental status. He has a [facility]. It is unclear what his baseline was. He does have significant dementia, history of tobacco abuse and he had been staying at the group home. There is no family. The patient was reported to have some altered sensorium and was evaluated in the emergency room and felt he had pneumonia, admitted and treated for pneumonia and possible urinary tract infection. He did have a history of hyperthyroid, appeared to be in hyperthyroid state and so addressed the hyperthyroid and started him on started him some on Tapazole 10 mg b.i.d. He also has a history of seizures, so continued on his seizure medications. Clinically pneumonia seemed to improve and felt like he could go back to the group home on 03/18/2019. He had a right upper lobe pneumonia and getting cefepime 1 g q.12 hours, vancomycin 1 g q.24 hours. Plan to continue this. His cultures were unrevealing. We did check stools for Clostridium and they were negative so plan to let him go back to the group home at [place]. DISCHARGE MEDICATIONS: He does have a PICC line and we will continue Xanax 0.25 mg daily and then 0.25 mg q.8 hours p.r.n., aspirin 81 mg a day, Lipitor 40 mg a day, Cogentin 0.5 mg b.i.d., Caltrate 600 plus D one at bedtime. We will continue the cefepime 1 g q.12h, Depakote ER 750 mg at bedtime, Cymbalta 30 mg daily. Lovenox will stop. Levemir 25 units subcutaneous daily, Vimpat 100 mg p.o. b.i.d., Culturelle 1 b.i.d., Keppra 500 mg p.o. b.i.d., Tapazole 10 mg b.i.d., Prilosec 40 mg a day, Klor-Con 40 mEq daily, Risperdal 1 mg daily and 1.5 mg Risperdal at bedtime, Flomax 0.4 mg at bedtime and we will give him the Vancomycin 1 g I believe q.24 hours. Follow-up chest x-ray which was done this morning interval placement PICC line essentially stable. cc: Elver Sanchez MD
[2019-03-18 16:40] VITALS: BP 115/59
== END 2019-03-18 18:28 | DRG 178 ==
LOC: SUPCPDRO → ED 12:51 → EDIPHOLD 20:45 → SUATTDRO 20:45 → 3N 22:03
PROVIDERS: ATTEND Emergency Medicine

== ENCOUNTER 2019-03-21 09:21 | Inpatient (IN) ==
[2019-03-21] MEDS ORDERED: VANCOMYCIN 1 GM/NS 1 GM/250 ML IVPB IV ONE (10:03)
[2019-03-21] MEDS ORDERED: AZACTAM 1 GM in NS 50 ML IV ONE (10:03)
--- NOTE | 2019-03-21 10:08 | PROVIDER DOCUMENTATION ---
HPI-Neurological Disorder - General Chief Complaint: SEPSIS ALERT - D Stated Complaint: STROKE SYMPTOMS Time Seen by Provider: 03/21/19 09:55 Source: EMS Unable to obtain history due to:: altered Allergies/Adverse Reactions: Patient Allergies Allergy/AdvReac Type Severity Reaction Status Date / Time No Known Allergies Allergy Verified 03/21/19 10:24 Home Medications: Home Medication List Medication Instructions Recorded Confirmed Last Taken Type ATORVAstatin [Lipitor] 40 mg PO QHS 03/07/19 03/21/19 Unknown History Alprazolam [Xanax] 0.5 mg PO DAILY@1700 03/07/19 03/21/19 Unknown History Aspirin [Lo-Dose Aspirin EC] 81 mg PO DAILY 03/07/19 03/21/19 Unknown History Benztropine Mesylate 0.5 mg PO BID 03/07/19 03/21/19 Unknown History Calcium Carbonate/Vitamin D3 1 ea PO QHS 03/07/19 03/21/19 Unknown History [Calcium 600 + Vit D 400 Tablet] Carvedilol [Coreg] 6.25 mg PO BID 03/07/19 03/21/19 Unknown History Dextran 70/Hypromellose 1 ea OPHTHALMIC (EYE) DAILY 03/07/19 03/21/19 Unknown History [Artificial Tears] Divalproex Sodium [Divalproex 750 mg PO QHS 03/07/19 03/21/19 Unknown History Sodium ER] Duloxetine [Cymbalta] 30 mg PO DAILY 03/07/19 03/21/19 Unknown History Insulin Aspart [Novolog Flexpen] See Protocol SQ 0700,1100,1600,2200 03/07/19 03/21/19 Unknown History Insulin Glargine,Hum.rec.anlog 38 unit SQ QAM 03/07/19 03/21/19 Unknown History [Lantus Solostar] Lacosamide [Vimpat] 100 mg PO BID 03/07/19 03/21/19 Unknown History Levetiracetam [Keppra] 500 mg PO BID 03/07/19 03/21/19 Unknown History Metformin E.r. [Glucophage Xr] 1,000 mg PO QHS 03/07/19 03/21/19 Unknown History Mineral Oil/Hydrophil Petrolat 1 applic TOP PRN PRN 03/07/19 03/21/19 Unknown History [Aquaphor Healing Ointment] Multivitamin with Minerals 1 ea PO DAILY 03/07/19 03/21/19 Unknown History [Multiple Vitamin] Risperidone [Risperdal] 1.5 mg PO QHS 03/07/19 03/21/19 Unknown History Tamsulosin [Flomax] 0.4 mg PO QHS 03/07/19 03/21/19 Unknown History Acetaminophen [Tylenol] 650 mg PO Q6H PRN PRN tab 03/18/19 03/21/19 Unknown Rx Albuterol 2.5MG/Ipratrop 0.5MG 3 ml INH Q2H PRN PRN neb 03/18/19 03/21/19 Unknown Rx [Duoneb (A & A)] Albuterol 2.5MG/Ipratrop 0.5MG 3 ml INH RTQ6H 30 Days #1 neb 03/18/19 03/21/19 Unknown Rx [Duoneb (A & A)] Alprazolam [Xanax] 0.25 mg PO Q8H PRN PRN 30 Days #30 03/18/19 03/21/19 Unknown Rx tab Insulin Detemir [Levemir] 25 unit SUBQ DAILY insuln.pen 03/18/19 03/21/19 Unknown Rx Lactobacillus Rhamnosus GG 1 ea PO BID cap 03/18/19 03/21/19 Unknown Rx [Culturelle] Omeprazole [Prilosec] 40 mg PO DAILY@0700 cap 03/18/19 03/21/19 Unknown Rx Potassium Chloride E.r. [Klor-Con] 40 meq PO DAILY tab 03/18/19 03/21/19 Unknown Rx Risperidone [Risperdal] 1 mg PO DAILY tab 03/18/19 03/21/19 Unknown Rx Alprazolam [Xanax] 0.25 mg PO DAILY@0900 03/21/19 03/21/19 Unknown History CefEPIME [Maxipime] 1 gm IV Q24H 03/21/19 03/21/19 Unknown History Vancomycin 1 gm IV Q24H 03/21/19 03/21/19 Unknown History - History of Present Illness-Neuro Nature of Presenting Problem: pt was D/C from hospital 2 days ago after tx for pneumonia. This am, MD staff noticed that could not feed self. Over next 2 hrs, condition worsened, BRANDIE was called. No other hx provided. Severity: reports: moderate Onset/Duration: reports: other (~0700) Timing: reports: still present, getting worse Character of Altered Mental Status: reports: decreased responsiveness Any recent trauma/injury?: reports: none Character of Deficits: reports: new weakness Review of Systems - Adult - REVIEW OF SYSTEMS - ADULT ROS:: unobtainable per condition Constitutional: reports: no symptoms reported Eyes: reports: no symptoms reported Ears, Nose, Mouth & Throat: reports: no symptoms reported Cardiovascular: reports: no symptoms reported Respiratory: reports: no symptoms reported Gastrointestinal: reports: no symptoms reported Genitourinary: reports: no symptoms reported Musculoskeletal: reports: no symptoms reported Integumentary: reports: no symptoms reported Neurological: reports: see HPI Psychiatric: reports: no symptoms reported Endocrine: reports: no symptoms reported Hematologic/Lymphatic: reports: no symptoms reported Allergic/Immunologic: reports: no symptoms reported Past History - Adult - PAST MEDICAL HISTORY-ADULT Review of Records: reports: Medications Reviewed Cardiovascular: reports: HTN Respiratory: reports: pneumonia Neurological: reports: CVA Psychiatric: reports: depression - PRIOR SURGERIES/PROCEDURES Surgical/Procedure History: reports: orthopedic (extremity) - IMMUNIZATION STATUS Childhood Immunizations: See Nurse Assessment Flu Vaccine: See Nurse Assessment - SOCIAL HISTORY Living Situation: care facility Physical Exam- Neurological - Physical Exam-Neuro Initial Vital Signs Reviewed: Yes General Appearance: mild distress, obtunded Eye Exam: bilateral eye: normal inspection, PERRL HENMT: normocephalic/atraumatic, moist mucous membranes, normal ENT inspection Head Injury: no evidence of injury Neck: non-tender, full range of motion, normal inspection Respiratory: lungs clear, other (T[place]A) Cardiovascular: regular rate, rhythm, no gallop, other (TR PEDAL EDEMA) Abdominal Exam: non tender, soft Extremity: other (NO MOTION, 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 Exam: other (UNABLE TO EVALUATE) Coordination/Gait: other (UNABLE TO EVALUATE) Motor/Sensory: other (DTRs intact, no response to commands) Neurologic: other (unable to evaluate) Integumentary: normal color, normal turgor Psych/Mental Status: other (unable) - Glascow Coma Scale Best Eye Response: (1) no response Best Verbal Response: (1) no verbal response Best Motor Response: (1) no motor response Progress - PLAN OF CARE/RESULTS Progress/Plan/Lab Results: Vital Signs - 8 hr 03/21/19 09:30 03/21/19 09:46 03/21/19 09:47 Temperature 97.5 F L Pulse Rate 94 H 94 H 93 H Respiratory Rate 30 H 16 30 H Blood Pressure 132/72 132/72 O2 Sat by Pulse Oximetry 97 96 96 03/21/19 09:50 03/21/19 10:00 03/21/19 10:03 Temperature Pulse Rate 91 H 94 H 92 H Respiratory Rate 33 H 35 H 34 H Blood Pressure 134/70 O2 Sat by Pulse Oximetry 95 98 99 03/21/19 10:10 03/21/19 10:20 03/21/19 10:30 Temperature Pulse Rate 93 H 90 93 H Respiratory Rate 29 H 29 H 26 H Blood Pressure O2 Sat by Pulse Oximetry 99 98 98 03/21/19 10:32 03/21/19 10:33 03/21/19 11:03 Temperature Pulse Rate 94 H 97 H Respiratory Rate 29 H 24 Blood Pressure 133/72 148/74 O2 Sat by Pulse Oximetry 100 100 96 03/21/19 11:34 Temperature Pulse Rate 96 H Respiratory Rate 24 Blood Pressure 115/67 O2 Sat by Pulse Oximetry 100 Laboratory Results - last 24 hr 03/21/19 03/21/19 03/21/19 10:05 10:05 10:05 WBC RBC Hgb Hct MCV MCH MCHC RDW Std Deviation Plt Count MPV Immature Gran % (Auto) Neut % (Auto) Lymph % (Auto) Norman % (Auto) Eos % (Auto) Baso % (Auto) Immature Gran # (Auto) Neut # (Auto) Lymph # (Auto) Norman # (Auto) Eos # (Auto) Baso # (Auto) Specimen Type Sample Site pH pCO2 pO2 HCO3 Base Excess Oxyhemoglobin ABG O2 Sat (Calculated) ABG O2 Saturation ABG Carboxyhemoglobin ABG Methemoglobin Elver Test A-a O2 Difference Total Hemoglobin Lactate Blood Gas Modality FiO2 % Sodium 138 Potassium 4.5 Chloride 104 Carbon Dioxide 19 L Anion Gap 15 BUN 24 H Creatinine 1.3 H Estimated GFR/1.73 m2 56 BUN/Creatinine Ratio 18 Glucose 304 H POC Glucose Calculated Osmolality 291 Calcium 7.8 L Total Bilirubin 0.25 AST 11 ALT 9 L Alkaline Phosphatase 65 Creatine Kinase 18 L Troponin T 0.025 Total Protein 5.8 L Albumin 2.5 L Globulin 3.3 Albumin/Globulin Ratio 0.8 Plasma Lactate 0.9 Valproic Acid 03/21/19 03/21/19 03/21/19 10:21 10:22 10:30 WBC RBC Hgb Hct MCV MCH MCHC RDW Std Deviation Plt Count MPV Immature Gran % (Auto) Neut % (Auto) Lymph % (Auto) Norman % (Auto) Eos % (Auto) Baso % (Auto) Immature Gran # (Auto) Neut # (Auto) Lymph # (Auto) Norman # (Auto) Eos # (Auto) Baso # (Auto) Specimen Type ARTERIAL Sample Site L RADIAL pH 7.39 pCO2 31 L pO2 67 HCO3 20.7 Base Excess -5.3 L Oxyhemoglobin 92.1 L ABG O2 Sat (Calculated) 14.0 L ABG O2 Saturation 95.4 ABG Carboxyhemoglobin 2.10 ABG Methemoglobin 1.3 Elver Test YES A-a O2 Difference 44.0 Total Hemoglobin 10.8 L Lactate 0.80 Blood Gas Modality ROOM AIR FiO2 % 21.0 Sodium Potassium Chloride Carbon Dioxide Anion Gap BUN Creatinine Estimated GFR/1.73 m2 BUN/Creatinine Ratio Glucose POC Glucose 362 H D Calculated Osmolality Calcium Total Bilirubin AST ALT Alkaline Phosphatase Creatine Kinase Troponin T Total Protein Albumin Globulin Albumin/Globulin Ratio Plasma Lactate Valproic Acid 27.50 L 03/21/19 10:44 WBC 10.16 RBC 2.63 L Hgb 7.1 L Hct 23.0 L MCV 87.5 MCH 27.0 MCHC 30.9 L RDW Std Deviation 14.3 Plt Count 339 MPV 9.2 Immature Gran % (Auto) 0.3 Neut % (Auto) 70.4 Lymph % (Auto) 12.3 L Norman % (Auto) 15.0 H Eos % (Auto) 1.7 Baso % (Auto) 0.3 Immature Gran # (Auto) 0.03 Neut # (Auto) 7.16 H Lymph # (Auto) 1.25 Norman # (Auto) 1.52 H Eos # (Auto) 0.17 Baso # (Auto) 0.03 Specimen Type Sample Site pH pCO2 pO2 HCO3 Base Excess Oxyhemoglobin ABG O2 Sat (Calculated) ABG O2 Saturation ABG Carboxyhemoglobin ABG Methemoglobin Elver Test A-a O2 Difference Total Hemoglobin Lactate Blood Gas Modality FiO2 % Sodium Potassium Chloride Carbon Dioxide Anion Gap BUN Creatinine Estimated GFR/1.73 m2 BUN/Creatinine Ratio Glucose POC Glucose Calculated Osmolality Calcium Total Bilirubin AST ALT Alkaline Phosphatase Creatine Kinase Troponin T Total Protein Albumin Globulin Albumin/Globulin Ratio Plasma Lactate Valproic Acid Orders Category Date Time Status Cardiac Monitoring DIRECTED Care 03/21/19 09:51 Active IV Insertion ORDERED Care 03/21/19 09:51 Active Notify MD of + Sepsis Screen NOW Care 03/21/19 09:51 Active Notify Physician As Ordered Care 03/21/19 09:51 Active CHEST-1 VIEW [RAD] Stat Exams 03/21/19 09:[address] HEAD W/O CONTRAST [CT] Stat Exams 03/21/19 09:30 Taken ABG [RESP] Routine Lab 03/21/19 10:30 Completed BLOOD CULTURE [BLDCUL] Stat Lab 03/21/19 10:05 Results CBC WITH DIFF [HEME] Stat Lab 03/21/19 10:44 Results CK PROFILE [SP CHEM] Stat Lab 03/21/19 10:05 Completed COMPREHENSIVE METABOLIC PANEL [CHEM] Stat Lab 03/21/19 10:05 Completed Depakote [VALPROIC ACID] [TDM] Stat Lab 03/21/19 10:21 Completed LACTATE, PLASMA [CHEM] Q3H Lab 03/21/19 10:05 Completed LACTATE, PLASMA [CHEM] Q3H Lab 03/21/19 13:00 Uncollected LACTATE, PLASMA [CHEM] Q3H Lab 03/21/19 16:00 Uncollected PROTIME WITH INR [COAG] Stat Lab 03/21/19 10:05 Received PTT [COAG] Stat Lab 03/21/19 10:05 Received TROPONIN T Stat Lab 03/21/19 10:05 Completed URINALYSIS W/POSS RFLX CULT [URINALYSIS] Stat Lab 03/21/19 09:51 Uncollected Aztreonam [Azactam] 1 gm Med 03/21/19 10:03 Discontinued 0.9% Sodium Chloride Inj [Ns] 50 ml IV NOW Vancomycin 1 gm/Ns Med 03/21/19 10:03 Discontinued 1 gm in 250 ml IV NOW Oxygen Device Stat Oth 03/21/19 09:51 Active EKG [EKG] Stat Ther 03/21/19 10:04 Draft Transfer/Admit Order [TRANSFER] Routine Transfer 03/21/19 11:31 Ordered Result Diagrams: 03/21/19 10:44 03/21/19 10:05 - EKG 1 Time of EKG reading by physician:: 10:20 EKG Read and Signed by:: Fredy Phillips EKG Interpretation (*Must complete 3 of following elements*): Abnormal Rate: 94 Rhythm: NSR QRS: poor R wave progression, LVH, other (LAFB) ST Wave: non-specific ST changes - CONSULTS/PCP/HOSPITALIST Notification #1 *Consult/PCP/Hospitalist*: Hospitalist Time Discussed: 10:30 Consult Disposition: Will see in ED, Admit Departure - Departure Date of Disposition Decision: 03/21/19 Time of Disposition Decision: 10:00 DIAGNOSIS: Right upper lobe pneumonia Qualifiers: Pneumonia type: due to unspecified organism Qualified Code(s): J18.1 - Lobar pneumonia, unspecified organism Anemia Qualifiers: Anemia type: unspecified type Qualified Code(s): D64.9 - Anemia, unspecified Altered mental status Qualifiers: Altered mental status type: unspecified Qualified Code(s): R41.82 - Altered mental status, unspecified Disposition: ADMITTED INPATIENT 09 Certified Medical Emergency: Emergent Condition: Stable - Critical Care Note This patient required my direct & personal management of CC.: No Attestation - Physician/ VAISHALI Attestation Patient care was provided by Advanced Practice Provider:: No The physician spent face to face time with patient:: Yes Advanced Practice Provider documentation review:: Supervising physician onsite and consulted in the evaluation and care of this patient. The physician did have a face to face encounter with the patient. - NIH Stroke Scale Level of Consciousness: 3-Coma LOC Questions (ask month and age): 2-Both Incorrect LOC Commands (ask to open & close eyes;make a fist, let go): 2-Both Incorrect Best Gaze (horizontal eye movement): 2-Forced Deviation Facial Palsy (show teeth or raise eyebrows & close eyes tght: 3-Complete Paralysis Motor Function-left arm: 0-Untestable Motor Function-right arm: 0-Untestable Motor Function-left le-Untestable Motor Function-right le-Untestable Limb Ataxia(fagahp-rnfp-vqntsd, or heel to chavez): 0-Untestable Sensory(pin prick to face,arms,trunk,legs-compare side/side): 2-Severe to Total Sensory Loss Best Language(name item/read sentence.Ex-Down to Earth): 3-Mute Dysarthria(Pt read words or say words Ex.Mama,Tip-Top,Thanks: 3-Intubated or Other Extinction and Inattention: 2-Profound Neglect Stroke tPA Guidelines - Inclusion Criteria for IV tPA 18 years old or older: Yes Ischemic stroke with measurable deficit: Yes Onset <3 hours ago *OR* 3-4.5 hours ago: Unable to Obtain - Additional Exclusion Criteria for IV tPA Baseline NIHSS score > 25: Unable to Obtain
--- NOTE | 2019-03-21 10:22 | Diag Imaging Result Doc PS360 ---
EXAM: CHEST-1 VIEW 03/21/2019 HISTORY: d/c 03/18, dx pneumonia TECHNIQUE: AP portable at 1007 COMMENT: There is dense opacification of the right upper lobe. There is diffuse opacification of the remaining lung smith most likely due to pulmonary edema and/or pneumonia. This has progressively worsened over the last several examinations including 03/16/2019 and 03/18/2019. IMPRESSION: Right upper lobe pneumonia. Pulmonary edema. Electronically signed by Angel Escudero 03/21/2019 10:20 AM
[2019-03-21 10:41] LABS: ALLEN TEST YES; BE -5.3 mmoll (-3.0-3.0); BLOOD TYPE ARTERIAL; HCO3-(ACT) 20.7 mmoll (20.0-26.0); METHB 1.3 % (0.0-1.5); O2HB 92.1 % (95.0-99.0); PCO2(98.6) 31 mmHg (35-45); PO2(98.6) 67 mmHg (60-100); SAMPLE BLOOD; SAO2 95.4 % (95.0-100.0); THB 10.8 g/dL (11.5-17.4); pH(98.6) 7.39 (7.35-7.45)
[2019-03-21 10:42] LABS: MODALITY ROOM AIR
[2019-03-21 10:50] LABS: ALB/GLOB RATIO 0.8; ALBUMIN 2.5 g/dL (3.5-5.0); CALCIUM 7.8 mg/dL (8.8-10.2); CREATININE 1.3 mg/dL (0.7-1.2); POTASSIUM 4.5 mmol/L (3.5-5.1); TOTAL BILIRUBIN 0.25 mg/dL (0.20-1.00); TOTAL PROTEIN 5.8 g/dL (6.3-8.3)
[2019-03-21 11:44] LABS: BASO# 0.03 X1000 (0.0-0.2); BASO% 0.3 % (0.0-0.8); EOS# 0.17 X1000 (0.0-0.7); EOS% 1.7 % (0.0-10.0); HEMOGLOBIN 7.1 g/dL (14.0-18.0); IMM GRAN# 0.03 X1000 (0.0-0.04); IMM GRAN% 0.3 % (0.0-0.5); LYMPH# 1.25 X1000 (1.2-3.4); LYMPH% 12.3 % (20.5-51.1); MCHC 30.9 g/dL (33-37); MCV 87.5 FL (81-99); MONO# 1.52 X1000 (0.11-0.59); MPV 9.2 FL (7.4-10.4); NEUT# 7.16 X1000 (1.4-6.5); NEUT% 70.4 % (42.2-75.2); PLT 339 X1000 (130-400); RBC 2.63 XMIL (4.7-6.1); RDW 14.3 % (11.5-14.5); WBC 10.16 X1000 (4.8-10.8)
--- NOTE | 2019-03-21 11:52 | EKG Report ---
Test Performed on : 03/21/2019 10:13:41 AM Test Reason : sepsis Blood Pressure : / mmHG Vent. Rate : 094 BPM Atrial Rate : 094 BPM P-R Int : 154 ms QRS Dur : 120 ms QT Int : 356 ms P-R-T Axes : 032 -50 159 degrees QTc Int : 445 ms Normal sinus rhythm. Left anterior fascicular block Left ventricular hypertrophy with QRS widening Cannot rule out Septal infarct , age undetermined ST & T wave abnormality, consider lateral ischemia Abnormal ECG No previous ECGs available Unconfirmed Result
[2019-03-21 11:56] LABS: INR 1.23; PROTIME 16.4 Seconds (11.0-16.0)
[2019-03-21 11:57] LABS: PTT 37.3 Seconds (22.3-41.8)
--- NOTE | 2019-03-21 12:00 | Diag Imaging Result Doc PS360 ---
EXAM: CT HEAD W/O CONTRAST 03/21/2019 HISTORY: stroke like sx TECHNIQUE: This exam was performed using automated exposure control, adjustment of mA or kV according to patient size, and/or use of iterative reconstruction technique. COMMENT: There is encephalomalacia with ex vacuo enlargement of the posterior horn of the left lateral ventricle involving the occipital and adjacent posterior medial parietal lobe on the left. There are also patchy areas of lucency throughout the white matter of both hemispheres with small lacunae present particularly in both thalami and basal ganglia regions as well as in the centrum semiovale ovale on the left. There is no evidence of mass effect bleed or abnormal extra-axial fluid collection. The paranasal sinuses are clear as seen. The calvarium is intact. IMPRESSION: Extensive chronic ischemic microvascular changes and old infarcts as described above. No definite evidence of acute disease. If clinically indicated further evaluation with MRI may be desirable particularly in view of the chronic changes. Electronically signed by Angel Escudero 03/21/2019 9:45 AM
[2019-03-21 12:05] LABS: BANDS 2 % (0-1); LYMPHS 22 % (21-51); MONO 8 % (1-9); SEGS 68 % (42-75)
--- NOTE | 2019-03-21 14:09 | HISTORY AND PHYSICAL ---
CHIEF COMPLAINT: Per ED documents, stroke-like symptoms. HISTORY OF PRESENT ILLNESS: Mr. Sinclair is a 63-year-old male who [facility] He had previously been discharged on 03/18/2019 for treatment for pneumonia. [facility] the [facility] with IV antibiotics with vancomycin and cefepime. The patient does have a PICC line to his right upper extremity. Per notes, the [facility] staff noticed that the patient could not feed himself. They continued to watch him over the next 2 hours, and his condition worsened. EMS was called for reported decreased responsiveness. He does have a history of hypertension, pneumonia, CVA, and depression. We are still awaiting full workup in the ED. Head CT is currently pending. Chest x-ray shows progressively worsening pulmonary edema and/or pneumonia. CBC is still currently pending. History does show an acute kidney injury with a creatinine of 1.3 and valproic acid of 27.50. The patient was awake. He would only whisper his name and date of . He cannot tell me why he was brought to the ED today. He could not remember the events of this morning. He could not tell me where he was at or the current year. He did follow some commands, however, not all of them. He would easily fall back asleep, and then be easily awoke back up. We will admit him to [facility]. Currently, still awaiting his results of his head CT. We will get Dr. Fuchs involved as the patient continues to have pneumonia. He was covered with aztreonam in the ED. We will await Dr. Fuchs's recommendations. REVIEW OF SYSTEMS: Twelve-point review of systems hard to obtain secondary to the patient's condition. SOCIAL HISTORY: [facility]. PAST SURGICAL HISTORY: Unsure. ALLERGIES: No known drug allergies. MEDICATIONS: Home medications are being compiled. FAMILY HISTORY: Unknown. PHYSICAL EXAMINATION: VITAL SIGNS: Temperature was 97.5 degrees, heart rate 96, respirations 24, blood pressure 115/67, and O2 is 100% on room air. GENERAL: Mr. Sinclair is a 63-year-old gentleman who is lying on the stretcher, ill-appearing, but in no acute distress. HEENT: Atraumatic, normocephalic. PERRL. NECK: Supple. Trachea midline. CARDIOVASCULAR: S1, S2 appreciated. No murmurs, gallops, rubs noted. RESPIRATORY: Lung sounds decreased throughout all lung smith to try to get the patient to take a deep breath. However, he was not really cooperating. GI: Appeared to be soft, nontender, and nondistended. Positive bowel sounds in 4 quadrants. EXTREMITIES: Lower extremities with trace edema. Bilateral pedal pulses were palpable. NEUROLOGIC: Patient is ill appearing. He would whisper his name. It took him a while to remember his date of . He could not tell me the current year, his location, where he came from, who the current president was, or what events took place that morning. He would squeeze my hands. He did try to smile. He did try to stick out his tongue, but could not appreciate any being symmetrical. He did wiggle his toes. He would not participate in push- pull or lifting his legs off the bed. He would easily fall asleep, but then easily be woken back up. DIAGNOSTIC: Head CT currently pending. Chest x-ray shows worsening pneumonia, pulmonary edema on the right. LABORATORY DATA: CBC pending. CMP does show an acute kidney injury with a creatinine 1.3. ASSESSMENT AND PLAN: 1. Probable failed outpatient treatment for recurrent hospital-acquired pneumonia. The patient has been initiated on IV antibiotics in the ED. We will consult Dr. Fuchs to see his recommendations on antibiotic coverage. Continue on supplemental O2 and breathing treatments. We will get a sputum culture. Check blood cultures. 2. Questionable sepsis secondary to pneumonia. Again, currently UA is pending, lactate and CBC. We will continue with antibiotic recommendations per Dr. Fuchs. 3. Altered mental status. We do not have the patient's baseline. There is some history of dementia, however, the patient does seem quite sleepy. Unsure if this is a CVA or from his pneumonia. We will continue with frequent neuro checks. Pending head CT. 4. Diabetes mellitus. We will continue with sliding scale insulin and fingerstick blood sugars. 5. Hypothyroidism. Continue Tapazole. 6. History of seizures. We will continue his Keppra. 7. Acute kidney injury. We will gently hydrate him overnight, recheck his labs in the morning. 8. Dementia. Continue with home medications. 9. Further recommendation to follow physician evaluation, laboratory and diagnostic data. Dictated by LINNETTE Hua for Shankar Centeno MD Addendum: Patient seen and examined by myself. Agree with LINNETTE note. It reflects my assessment and plan. Patient is being admitted to hospital for failed outpatient treatment for pneumonia. Will start broad spectrum antibiotics and will monitor patient closely. cc: Shankar Centeno MD MTDD
[2019-03-21] MEDS ORDERED: DUONEB (A & A) INH PRN (17:04)
[2019-03-21] MEDS ORDERED: AQUAPHOR OINTMENT TOP PRN (17:04)
[2019-03-21] MEDS: DUONEB (A & A) INH SCH ×2 (17:22→21:59)
[2019-03-21] MEDS: HUMALOG SUBQ SCH ×2 (18:25→23:18)
[2019-03-21] MEDS: NS 1,000 ML IV SCH (20:21)
[2019-03-21 20:25] LABS: URINE SOURCE CATH
[2019-03-21 20:30] LABS: BILIRUBIN URINE NEGATIVE (NEGATIVE); BLOOD URINE MODERATE (NEGATIVE); COLOR YELLOW; GLUCOSE URINE 300 mg/dL (NEGATIVE); KETONE URINE 10 mg/dL (NEGATIVE); LEUKOCYTES URINE LARGE (NEGATIVE); NITRITE URINE NEGATIVE (NEGATIVE); PROTEIN URINE 50 mg/dL (NEGATIVE); SP GRAVITY URINE 1.014; TURBIDITY URINE TURBID (CLEAR); UROBILINOGEN URINE NORMAL (NORMAL)
[2019-03-21 20:32] LABS: UR EPITHELIAL CELLS <10 /HPF (<10); URINE BACTERIA NEGATIVE /HPF; URINE RBC <10 /HPF (<10); URINE WBC TNTC /HPF (<10)
[2019-03-21 20:55] LABS: URINE YEAST PRESENT
[2019-03-21] MEDS ORDERED: DEPAKOTE ER PO SCH (21:00)
[2019-03-21] MEDS ORDERED: VIMPAT PO SCH (21:00)
[2019-03-21] MEDS ORDERED: KEPPRA PO SCH (21:00)
[2019-03-21] MEDS ORDERED: RISPERDAL PO SCH (21:00)
[2019-03-21] MEDS: CALTRATE 600 + D PO SCH (23:17)
[2019-03-21] MEDS: CULTURELLE PO SCH (23:18)
[2019-03-21] MEDS: LIPITOR PO SCH (23:18)
[2019-03-21] MEDS: FLOMAX PO SCH (23:18)
[2019-03-21] MEDS: COREG PO SCH (23:18)
[2019-03-21] MEDS: KEPPRA 500 MG in NS 100 ML IV SCH (23:19)
[2019-03-21] MEDS: DEPACON 250 MG in NS 50 ML IV SCH (23:19)
[2019-03-22] MEDS: ATIVAN IV PRN ×4 (01:02→22:18)
[2019-03-22] MEDS: DUONEB (A & A) INH SCH ×4 (03:38→21:18)
[2019-03-22] MEDS: NS 1,000 ML IV SCH (05:18)
[2019-03-22 05:45] LABS: HEMATOCRIT 22.9 % (42.0-52.0); MCH 27.1 PG (27-31); MCHC 30.6 g/dL (33-37); MCV 88.8 FL (81-99); PLT 386 X1000 (130-400); RBC 2.58 XMIL (4.7-6.1); RDW 14.2 % (11.5-14.5); WBC 11.37 X1000 (4.8-10.8)
[2019-03-22 05:46] LABS: BASO# 0.02 X1000 (0.0-0.2); BASO% 0.2 % (0.0-0.8); EOS# 0.15 X1000 (0.0-0.7); EOS% 1.3 % (0.0-10.0); IMM GRAN# 0.03 X1000 (0.0-0.04); IMM GRAN% 0.3 % (0.0-0.5); LYMPH# 0.69 X1000 (1.2-3.4); LYMPH% 6.1 % (20.5-51.1); MONO# 1.19 X1000 (0.11-0.59); MONO% 10.5 % (1.7-9.3); MPV 9.4 FL (7.4-10.4); NEUT# 9.29 X1000 (1.4-6.5); NEUT% 81.6 % (42.2-75.2)
[2019-03-22] MEDS ORDERED: LASIX IV ONE (05:50)
[2019-03-22 06:20] LABS: POTASSIUM 4.8 mmol/L (3.5-5.1); SODIUM 145 mmol/L (136-145)
[2019-03-22 06:21] LABS: AGAP 14; ALB/GLOB RATIO 0.5; ALBUMIN 2.2 g/dL (3.5-5.0); ALKALINE PHOSPHATASE 84 U/L (32-122); BUN 22 mg/dL (8-22); CALCIUM 7.9 mg/dL (8.8-10.2); CHLORIDE 113 mmol/L (98-107); COSMO 301; CREATININE 1.2 mg/dL (0.7-1.2); ESTIMATED GFR > 60; GLUCOSE 257 mg/dL (70-104); GOT 11 U/L (10-34); GPT 10 U/L (10-44); TCO2 18 mmol/L (25-35); TOTAL BILIRUBIN 0.15 mg/dL (0.20-1.00); TOTAL PROTEIN 6.3 g/dL (6.3-8.3)
[2019-03-22] MEDS: HUMALOG SUBQ SCH ×4 (06:30→20:31)
[2019-03-22] MEDS: ZOSYN 3.375 GM in NS 50 ML IV SCH ×5 (06:31→23:23)
[2019-03-22] MEDS ORDERED: PRILOSEC PO SCH (07:00)
--- NOTE | 2019-03-22 07:22 | Diag Imaging Result Doc PS360 ---
EXAM: CHEST-PORTABLE 03/22/2019 HISTORY: Pneumonia TECHNIQUE: AP portable at 0603 COMMENT: There is dense opacification of the right upper lobe. There is perihilar alveolar opacity bilaterally with hazy opacity in the more peripheral lung smith. This was also the case on 03/21/2019. IMPRESSION: Right upper lobe pneumonia and florid pulmonary edema. Electronically signed by Angel Escudero 03/22/2019 7:20 AM
[2019-03-22] MEDS ORDERED: CYMBALTA PO SCH (09:00)
[2019-03-22] MEDS: LANTUS INSULIN SUBQ SCH (09:39)
[2019-03-22] MEDS: ASPIRIN EC PO SCH (09:45)
[2019-03-22] MEDS: CULTURELLE PO SCH ×2 (09:45→20:32)
[2019-03-22] MEDS: COREG PO SCH ×2 (09:45→20:32)
[2019-03-22] MEDS: RISPERDAL PO SCH (09:46)
[2019-03-22] MEDS: SYSTANE EYE DROPS OPH SCH (09:46)
--- NOTE | 2019-03-22 10:43 | INFECTIOUS DISEASE PROGRESS NO ---
DATE: 03/22/2019 PRESENT ILLNESS: The patient has a right upper lobe pneumonia. He also has diffuse opacity on the other parts of the lung which could be due to a pneumonia, but also could be due to pulmonary venous congestion. The patient was recently in the hospital and was treated for pneumonia [facility] a [facility] of vancomycin and cefepime. The patient also has funguria. MEDICATIONS: Currently the patient is not on any antibiotic. PHYSICAL EXAMINATION: Vital Signs: Temperature is 98.5 degrees, pulse 97, respirations 20, blood pressure 136/69. General: This is an ill-appearing, middle-aged male. He is obtunded. Head, eyes, ears, nose and throat: No drainage noted from the nose or ears. The patient is wearing a BiPAP mask. Neck: No meningismus. Lungs: There were rales heard on the right side. The left side was clear. Cardiovascular: Heart rate is regular. Abdomen: Soft and nontender. Neurologic: The patient is obtunded. He did not respond to verbal stimuli. He does not have a tremor. Integument: No rash noted. LAB AND X-RAY: [place] [address], hemoglobin is 7, and platelet count is 386,000. Liver function studies are normal. Creatinine is 1.3. Urinalysis showed white cells, yeast, but no bacteria. Blood and urine cultures are pending. Chest x-ray shows dense right upper lobe opacification and diffuse opacification on the rest of the lung tissue. CT of the head shows extensive chronic ischemic microvascular changes. ASSESSMENT AND PLAN: The patient has pneumonia. He was recently in [facility] and was treated for pneumonia and [facility] the [facility] on cefepime and vancomycin. The patient appears to have gotten worse. Therefore, the patient may have an organism that was not covered with the vancomycin and cefepime. I think it is possible that the patient does aspirate and maybe he has a component of anaerobic organisms as well as aerobic organisms. I am going to put the patient on Zosyn and see how he is doing. I think given all of the patient's comorbidities including dementia, seizure disorder, anxiety disorder, and diabetes mellitus, I am not going to see if he has a immunoglobulin deficiency. If he did have an immunoglobulin deficiency, I do not think regular immunoglobulin infusions should be done in this situation. COMORBIDITIES: As mentioned above, the patient has dementia, seizure disorder, anxiety disorder, and diabetes mellitus. [facility] lives in a prison. cc: Cesario Fuchs MD
[2019-03-22] MEDS: LEVEMIR SUBQ SCH (10:58)
[2019-03-22] MEDS: KEPPRA 500 MG in NS 100 ML IV SCH ×3 (11:13→23:08)
[2019-03-22] MEDS: DEPACON 250 MG in NS 50 ML IV SCH ×3 (13:16→23:08)
--- NOTE | 2019-03-22 14:13 | PROGRESS NOTE ---
DATE: 03/22/2019 SUBJECTIVE: The patient looks like he is having difficulty breathing. He is a longterm patient. He was here recently for pneumonia and he was discharged on vancomycin and cefepime. He was having worsening shortness of breath, decreased responsiveness. He had been placed on BiPAP. He has failed outpatient pneumonia. OBJECTIVE: Vital signs: Blood pressure is 157/76, heart rate 112, respiratory rate 28, temperature 97.9 degrees. He was breathing 40 times this morning. No temperature that I am aware of. Cardiovascular: Regular rate and rhythm. Pulmonary: Diminished breath sounds at the bases. GI: Soft, nontender, nondistended. Bowel sounds are positive. LABORATORY DATA: Hemoglobin and hematocrit are 7 and 22, white count of 11, platelets of 386,000. BUN and creatinine are 22 and 1.2. Sugar 237. Pvg-atvjxaie-hl-count red blood cells. PROBLEM LIST: 1. Pneumonia, respiratory failure. Will continue empiric antibiotics and follow. 2. Acute on chronic respiratory failure. We will continue BiPAP. May need to get pulmonary involvement if his respiratory status does not improve. 3. Type 2 diabetes. He is on sliding scale insulin. We will continue to monitor. 4. Hyperthyroidism. He is on Tapazole. I think when he was here last time he did not have hyperthyroid but he was discharged on Tapazole and IV antibiotics. He is still very confused. 5. Pulmonary edema. Will continue treatment and follow. I am going to initiate diuretics. 6. Anemia in the setting of just severe respiratory failure and multiple other issues. I am going to go ahead and give him 1 unit of blood. He has not been this low before. He was not this anemic last admission. It may be related to bleeding issue. We will do iron. 7. Seizure disorder. We will continue Depakote. He is on Keppra as well. We will continue to follow very closely and step-down. cc: Antonio Dos Santos MD
[2019-03-22] MEDS: LASIX IV SCH (15:37)
[2019-03-22] MEDS ORDERED: NS 500 ML ONE (16:25)
[2019-03-22] MEDS: TYLENOL PO PRN (16:27)
--- NOTE | 2019-03-22 16:28 | ECHO REPORT ---
ORDER DATE: 03/22/2019 SUMMARY OF THE 2-DIMENSIONAL IMAGIN. Aortic valve leaflets are trileaflet. 2. Pulmonic valve was normal. 3. Tricuspid valve was normal. 4. Mitral valve was normal. 5. There is left atrial enlargement. 6. There is mild tricuspid regurgitation. 7. Peak velocity across the tricuspid valve was 3.6 m/sec. 8. Pulmonary artery systolic pressure of 63 mmHg. 9. Peak velocity across the aortic valve less than 2 m/sec. 10. By Doppler studies, there is no aortic stenosis or regurgitation normal left ventricular cavity size. 11. Estimated ejection fraction of 30% to 35%. There is anteroseptal and inferior wall hypokinesis. 12. There is no pericardial effusion or obvious intracardiac mass or thrombus seen. 13. There is left atrial enlargement. 14. There is diastolic dysfunction. cc: MD Antonio Warren MD
[2019-03-22] MEDS: LIPITOR PO SCH (20:32)
[2019-03-22] MEDS: CALTRATE 600 + D PO SCH (20:32)
[2019-03-22] MEDS: FLOMAX PO SCH (20:32)
[2019-03-22] MEDS ORDERED: D50W SYRINGE IV ONE (23:32)
[2019-03-23] MEDS: LASIX IV SCH (01:15)
[2019-03-23] MEDS ORDERED: D50W SYRINGE IV PRN (02:30)
[2019-03-23] MEDS: DUONEB (A & A) INH SCH ×4 (03:20→22:49)
[2019-03-23] MEDS: ATIVAN IV PRN ×2 (05:06→12:58)
[2019-03-23] MEDS: ZOSYN 3.375 GM in NS 50 ML IV SCH ×6 (05:06→23:38)
[2019-03-23 05:58] LABS: BASO# 0.04 X1000 (0.0-0.2); BASO% 0.3 % (0.0-0.8); EOS# 0.42 X1000 (0.0-0.7); EOS% 2.7 % (0.0-10.0); HEMATOCRIT 31.4 % (42.0-52.0); HEMOGLOBIN 10.1 g/dL (14.0-18.0); IMM GRAN# 0.03 X1000 (0.0-0.04); IMM GRAN% 0.2 % (0.0-0.5); LYMPH# 1.02 X1000 (1.2-3.4); LYMPH% 6.6 % (20.5-51.1); MCH 28.1 PG (27-31); MCHC 32.2 g/dL (33-37); MCV 87.2 FL (81-99); MONO# 1.62 X1000 (0.11-0.59); MONO% 10.5 % (1.7-9.3); MPV 8.9 FL (7.4-10.4); NEUT# 12.35 X1000 (1.4-6.5); NEUT% 79.7 % (42.2-75.2); PLT 614 X1000 (130-400); RDW 14.5 % (11.5-14.5); WBC 15.48 X1000 (4.8-10.8)
[2019-03-23] MEDS: HUMALOG SUBQ SCH ×4 (06:00→20:57)
[2019-03-23 06:06] LABS: POTASSIUM 2.7 mmol/L (3.5-5.1)
[2019-03-23 06:07] LABS: CALCIUM 9.4 mg/dL (8.8-10.2); CREATININE 1.3 mg/dL (0.7-1.2)
--- NOTE | 2019-03-23 07:03 | INFECTIOUS DISEASE PROGRESS NO ---
DATE: 03/23/2019 PRESENT ILLNESS: The patient has bilateral pneumonia, especially noticeable in the right upper lobe. MEDICATIONS: The patient was started on Zosyn yesterday. This is day 1 of treatment. PHYSICAL EXAMINATION: Vital Signs: Temperature is 97.6 degrees, pulse 108, respirations 21, blood pressure 156/85. General: This is an ill-appearing, middle-aged male. He has a BiPAP mask on and he is in restraints. Head, Eyes, Ears, Nose, and Throat: As mentioned above, the patient has a BiPAP mask on. I did not see any drainage coming from his nose or ears. I could not get a good look at his mouth. Neck: No stiffness to passive range of motion movement of the neck. Lungs: Clear to auscultation. Cardiovascular: Heart rate is regular. Abdomen: Soft and nontender. Neurologic: The patient is lethargic. He did move around a little bit in bed. He did not respond to verbal stimuli. He does not have a tremor. Integument: No rash noted. LAB AND X-RAY: The patient's echocardiogram did not show any vegetations or pericardial effusion. The patient's CBC shows a white count of 15,480, hemoglobin 10.1, and platelet count 614,000. Creatinine is 1.3. GFR is 56. Blood cultures are pending. Urine culture is negative. ASSESSMENT AND PLAN: The patient has pneumonia. I had started Zosyn yesterday and I plan to continue it. COMORBIDITIES: Dementia, seizure disorder, anxiety disorder, and diabetes mellitus. The patient lives in a custodial. cc: Cesario Fuchs MD
[2019-03-23] MEDS: SYSTANE EYE DROPS OPH SCH (08:55)
[2019-03-23] MEDS: COREG PO SCH ×2 (08:55→20:50)
[2019-03-23] MEDS: CULTURELLE PO SCH ×2 (08:55→20:50)
[2019-03-23] MEDS: ASPIRIN EC PO SCH (08:55)
[2019-03-23] MEDS: RISPERDAL PO SCH (08:55)
[2019-03-23] MEDS: LEVEMIR SUBQ SCH (11:16)
[2019-03-23] MEDS: LANTUS INSULIN SUBQ SCH (11:16)
[2019-03-23] MEDS: DEPACON 250 MG in NS 50 ML IV SCH ×2 (11:35→23:04)
[2019-03-23] MEDS: KEPPRA 500 MG in NS 100 ML IV SCH ×2 (11:42→23:04)
[2019-03-23] MEDS ORDERED: HALDOL IV PRN (14:15)
--- NOTE | 2019-03-23 14:51 | PROGRESS NOTE ---
DATE: 03/23/2019 SUBJECTIVE: Patient has no major complaints. OBJECTIVE: Vital signs: Blood pressure is 145/64, heart rate of 100, respiratory rate of 18, temperature 98 degrees, 99% on 2 L. Cardiovascular: Tachy. Pulmonary: Still has rhonchorous breath sounds. He seems more awake and alert though today than he did yesterday. He is not working as hard to breathe. His saturations are 99 to 100 percent on 2 L. LABORATORY: White count is still high which is 15,000. His hemoglobin and hematocrit has come up to 10 and 31 after 1 unit. Sodium is 150 and potassium is 2.7. Creatinine 1.3. PROBLEM LIST: 1. Acute hypoxic respiratory failure secondary to pneumonia and possibly pulmonary edema. We will continue treatment. Wean off BiPAP. He is improving so I am just going to kind of watch him right now. 2. Multilobar pneumonia. ID is following. He has changed him to Zosyn treatment which will be day 2 and that is his only antibiotic right now. Cultures are thus far negative. He had been on IV antibiotics at the facility. I am pretty sure it was vancomycin and cefepime. 3. Pulmonary edema. Appears to be better. I am getting another x-ray today. I am going to titrate back on his diuretics because he appears to be hypernatremic and things of that nature. We will continue to follow. 4. Diabetes. His blood sugars have actually been low. He has 2 different sets of insulins ordered as an outpatient, glargine and Levemir or he did have Levemir. His medication list may have been updated. But right now his blood sugars are on the low side so we are going to hold and just cover with sliding scale. 5. Seizure disorder. He is currently on his regular medications. 6. Hypokalemia. Likely related to diuretics. We will repeat his chest x-ray and labs in the morning including magnesium and follow. 7. Anemia. Greatly improved after transfusion. No clear evidence of bleeding. Still waiting on a Hemoccult. DISPOSITION: Pending his clinical status. We will continue to follow closely. cc: Antonio Dos Santos MD
--- NOTE | 2019-03-23 15:00 | Diag Imaging Result Doc PS360 ---
CHEST-PORTABLE - 03/23/2019 INDICATION: resp failure COMPARISON: 03/22/2019 FINDINGS: Stable right PICC line in good position. There has been significant decrease density in the extensive infiltrate bilaterally, there is still some residual infiltrate in the upper lobes bilaterally right greater than left. No large pleural effusion. Heart size is normal. Pulmonary vasculature is somewhat distended although this has improved since prior. IMPRESSION: Significant improvement from prior. Electronically signed by Onesimo Stacy 03/23/2019 2:58 PM
[2019-03-23] MEDS: POTASSIUM CHLORIDE 20 MEQ/SWI 20 MEQ/100 ML IVPB IV SCH ×2 (15:03→16:44)
[2019-03-23] MEDS ORDERED: D5 1/2 NS 500 ML IV SCH (15:30)
[2019-03-23] MEDS: XANAX PO SCH (16:46)
[2019-03-23] MEDS: HALDOL IV PRN (19:45)
[2019-03-23] MEDS: CALTRATE 600 + D PO SCH (20:51)
[2019-03-23] MEDS: FLOMAX PO SCH (20:51)
[2019-03-23] MEDS: COGENTIN PO SCH (20:51)
[2019-03-23] MEDS: LIPITOR PO SCH (20:51)
[2019-03-24] MEDS: DUONEB (A & A) INH SCH ×5 (03:43→23:40)
[2019-03-24] MEDS: LOVENOX SUBQ SCH (05:07)
[2019-03-24] MEDS: ZOSYN 3.375 GM in NS 50 ML IV SCH ×5 (05:07→23:23)
[2019-03-24 06:13] LABS: AGAP 12; BUN 13 mg/dL (8-22); CALCIUM 8.5 mg/dL (8.8-10.2); CHLORIDE 106 mmol/L (98-107); COSMO 290; CREATININE 1.1 mg/dL (0.7-1.2); ESTIMATED GFR > 60; GLUCOSE 154 mg/dL (70-104); MAGNESIUM 1.7 mg/dL (1.5-2.7); POTASSIUM 3.4 mmol/L (3.5-5.1); SODIUM 144 mmol/L (136-145); TCO2 26 mmol/L (25-35)
[2019-03-24 06:21] LABS: BASO# 0.07 X1000 (0.0-0.2); BASO% 0.6 % (0.0-0.8); EOS# 0.58 X1000 (0.0-0.7); EOS% 4.7 % (0.0-10.0); HEMATOCRIT 29.9 % (42.0-52.0); HEMOGLOBIN 9.4 g/dL (14.0-18.0); IMM GRAN# 0.06 X1000 (0.0-0.04); IMM GRAN% 0.5 % (0.0-0.5); LYMPH# 1.68 X1000 (1.2-3.4); LYMPH% 13.6 % (20.5-51.1); MCH 27.3 PG (27-31); MCHC 31.4 g/dL (33-37); MCV 86.9 FL (81-99); MONO# 1.58 X1000 (0.11-0.59); MONO% 12.8 % (1.7-9.3); MPV 9.1 FL (7.4-10.4); NEUT# 8.41 X1000 (1.4-6.5); NEUT% 67.8 % (42.2-75.2); PLT 550 X1000 (130-400); RBC 3.44 XMIL (4.7-6.1); RDW 14.4 % (11.5-14.5); WBC 12.38 X1000 (4.8-10.8)
[2019-03-24] MEDS: HUMALOG SUBQ SCH ×4 (06:23→21:09)
--- NOTE | 2019-03-24 07:24 | Diag Imaging Result Doc PS360 ---
CHEST-PORTABLE - 03/24/2019 INDICATION: dyspnea COMPARISON: 03/23/2019 FINDINGS: Stable right PICC line in good position. There is increased density of the infiltrate in the right upper lobe, as well as the medial right lung base. There is worsening central interstitial infiltrate diffusely and bilaterally compatible with pulmonary edema. Heart size remains top normal. No large pleural effusion. IMPRESSION: 1. Worsening multilobar infiltrates on the right. 2. Worsening pulmonary edema. Electronically signed by Onesimo Stacy 03/24/2019 7:22 AM
--- NOTE | 2019-03-24 07:41 | INFECTIOUS DISEASE PROGRESS NO ---
DATE: 03/24/2019 PRESENT ILLNESS: The patient has a bilateral pneumonia which may be secondary to aspiration. The patient lives in a [facility]. MEDICATIONS: This is day 2 of treatment with Zosyn. PHYSICAL EXAMINATION: Vital Signs: Temperature is 98.1 degrees, pulse 111, respirations 19, blood pressure 147/75. General: This is an ill-appearing, middle-aged male. He does not have a BiPAP mask today. He is still in restraints, however. Head/eyes/ears/nose/throat: He can hear my spoken words and see near objects. I did not see any white patches in his mouth. Neck: The patient did not seem to have any pain with movement of his neck. Lungs: Clear to auscultation. Cardiovascular: Heart rate is regular. Abdomen: Soft and nontender. Neurologic: Today the patient was awake. He did talk in a coherent fashion. There was no tremor. LAB AND X-RAY: Chest x-ray showed a significant improvement in the patient's infiltrates. A CBC was ordered for today, but is still pending. No BMP was ordered for today. ASSESSMENT AND PLAN: Patient has a pneumonia. It may well be due to aspiration, and it seems to be improving significantly. My plan is to continue treatment with Zosyn. COMORBIDITIES: Dementia, seizure disorder, anxiety disorder, and diabetes mellitus. cc: Cesario Fuchs MD
--- NOTE | 2019-03-24 07:53 | INFECTIOUS DISEASE PROGRESS NO ---
DATE: 03/24/2019 ADDENDUM: The patient's chest x-ray shows worsening pulmonary venous congestion. His creatinine is 1.1. GFR is greater than 60. I am going to order a procalcitonin level to see if the pulmonary findings are all from pulmonary venous congestion, or is there a component of pneumonia as well. Today's CBC shows that the white count is down to 12,380, hemoglobin 9.4, and platelet count of 550,000. cc: Cesario Fuchs MD
[2019-03-24] MEDS: RISPERDAL PO SCH (09:56)
[2019-03-24] MEDS: XANAX PO SCH ×2 (09:56→17:23)
[2019-03-24] MEDS: COREG PO SCH ×2 (09:56→20:53)
[2019-03-24] MEDS: CULTURELLE PO SCH ×2 (09:56→20:54)
[2019-03-24] MEDS: SYSTANE EYE DROPS OPH SCH (09:56)
[2019-03-24] MEDS: ASPIRIN EC PO SCH (09:56)
[2019-03-24] MEDS: LASIX IV SCH ×2 (09:56→20:53)
[2019-03-24] MEDS: COGENTIN PO SCH ×2 (10:00→20:54)
[2019-03-24] MEDS: DIOVAN PO SCH (11:59)
[2019-03-24] MEDS: DEPACON 250 MG in NS 50 ML IV SCH ×3 (12:03→23:00)
[2019-03-24] MEDS: KEPPRA 500 MG in NS 100 ML IV SCH ×3 (12:06→23:00)
--- NOTE | 2019-03-24 12:31 | CONSULTATION ---
DATE OF CONSULTATION: 03/24/2019 IMPRESSION: 1. Acute on chronic systolic heart failure with pulmonary edema. 2. Moderate cardiomyopathy. 3. Pneumonia, recurrent. 4. Dementia/confusion. 5. Seizure disorder. 6. Diabetes mellitus. RECOMMENDATIONS: 1. Diurese with IV Lasix as you are doing. 2. Continue carvedilol. 3. Add low-dose ARB as tolerated. 4. Conservative cardiovascular management overall in light of patient's severe functional limitations. HISTORY: This 63-year-old white male with past history of dementia, recent pneumonia, previous heavy alcohol use in the past, diabetes mellitus, and seizure disorder was brought from shelter facility because of decline in mental status. He manifests evidence of recurrent pneumonia as well as possible pulmonary edema. Echocardiography indicated moderately depressed left ventricular systolic function and cardiology is consulted. He is not able to give much in the way of history as he is confused. He relates that he hurts all over. He is not aware of any previous cardiac problems. He apparently has a history of previous cerebrovascular accident. He also has history of hypertension, depression and was apparently homeless for a while. PAST MEDICAL HISTORY: 1. Dementia. 2. Hypertension. 3. Previous cerebrovascular accident. 4. Depression. 5. Seizure disorder. 6. Thyroid disorder. ALLERGIES: No known drug allergies. MEDICATIONS: As listed. SOCIAL HISTORY: He resides in a detention. He has history of previous smoking in the past, but no longer smokes. He also has history of previous heavy alcohol use in the past, but no longer drinks alcohol. He previously worked as a sign writer letterer or painter. FAMILY HISTORY: Noncontributory. REVIEW OF SYSTEMS: Not reliably obtainable given patient's confusion. PHYSICAL EXAMINATION: Mr. Sinclair is an older middle-aged white male in no distress. Appears older than stated age.Vital signs: Blood pressure 168/101, heart rate 109, oxygen saturation 99 to 100 percent on nasal cannula oxygen at 4 L/minute. HEENT: Extraocular movements appear intact. Mucous membranes are moist. Neck: Supple without discernible jugular distention. There are no carotid bruits to auscultation. Chest: Auscultation of the chest reveals bibasilar crackles. Cardiac: Reveals a regular rate and rhythm without appreciable murmur or gallop. Abdomen: Soft. Bowel sounds audible. Extremities: Without edema. Neurologic: Reveals him to be awake and responsive. However, he is oriented to person only. He believes he is in [place]. He is completely unaware of the year. Speech is fluent. Moves all 4 extremities equally well. DIAGNOSTIC: Recent 12 lead ECG obtained 03/21/2019 is reviewed, and demonstrates normal sinus rhythm. Left anterior fascicular block and nonspecific ST and T-wave abnormality. Recent echocardiography performed 03/22/2019 demonstrates left ventricular ejection fraction approximately 35%. Moderate mitral regurgitation is demonstrated. There is also mild tricuspid regurgitation with estimated systolic PA pressure of 60 to 65 mmHg consistent with moderate pulmonary hypertension. Left ventricular ejection fraction 35%. Mild tricuspid regurgitation is demonstrated with estimated systolic PA pressure of 60 to 65 mmHg. Left atrial enlargement demonstrated. LABORATORY DATA: White blood cell count of 12.3, hematocrit 29.9, hemoglobin 9.4, and platelet count of 550,000. Sodium 144, potassium 3.4, chloride 106, carbon dioxide 26, BUN 13, creatinine 1.1, and glucose 154. Pro B natriuretic peptide level 18,134. Albumin 2.2. Chest x-ray is reviewed and demonstrates significant pneumonia as well as suggestion of pulmonary edema. cc: Lino Wetzel MD
--- NOTE | 2019-03-24 14:36 | PROGRESS NOTE ---
DATE: 03/24/2019 INTERVAL HISTORY: The patient reports mild improvement in dyspnea from admission although largely stable from yesterday. Oxygen requirements similar. No new complaints aside from fatigue. Acute events history. REVIEW OF SYSTEMS: A 12 point Review of Systems negative except as pertinent history. LABORATORY: WBC 12.3, hemoglobin 9.4, hematocrit 29.9, platelets 550,000. Sodium 144, potassium 3.4, BUN 13, creatinine 1.1. glucose 155 to 206. BNP 18,000. IMAGING: Chest x-ray with worsening multilobar infiltrates on the right with worsening pulmonary edema. Echocardiogram showing decreased ejection fraction of 30 to 35, increased pulmonary pressures 63. Significant valvular pathology. VITALS: T-max 98.4 degrees, pulse 109, respirations 25, blood pressure 141/63, 02 sat 100 percent on 4L by nasal cannula. OBJECTIVE: General: No acute distress. Chronically ill appearing. Vitals: As above. HEENT: Normocephalic and atraumatic. Moist mucous membranes. No cervical adenopathy. Cardiovascular: Slightly tachycardic, irregular. No murmurs noted. Pulmonary: Diffuse rhonchi and few scattered rales right greater than left. Reasonable air entry. Abdomen: Soft, nontender, and nondistended. Bowel sounds positive. Extremities: Peripheral pulses are intact. No clubbing or cyanosis. Neurologic: Cranial nerves grossly intact. Mild global weakness but no focal deficits identified. Psychiatric: Normal mood and affect. Oriented to person only, but most responses are appropriate. Skin: No new rashes or lesions identified. ASSESSMENT AND PLAN: 1. Outpatient treatment failure for HCAP. Remains on antibiotics with Zosyn as per infectious disease recommendations. Oxygen requirements improved. Suspect we will be able to wean her off entirely. Cultures: No growth to date. 2. Pulmonary edema, acute unlikely chronic systolic congestive heart failure. The patient with markedly elevated BNP, edema on x-ray and echo showing EF 30 to 35. This appears to be a new diagnosis for the patient, but suspect it has been present for quite some time. The patient had been off diuresis because of kidney function, but kidneys improved. Chest x-ray with worsened edema so we will start back IV Lasix. Cardiology consulted because of new diagnosis of congestive heart failure. Patient already on a beta jorje, which we will continue. Given labile kidney function, we will hold off on Riccardo for the moment but we will plan on adding that prior to discharge. 3. Diabetes. Some occasional moderate elevations, but overall acceptable control on current therapy. Monitor. 4. Hypernatremia. Appears to be improved. Continue to monitor. 5. Seizure disorder, no evidence of seizure since admission on home medications. We will continue that. 6. Hypokalemia. Improved from previous, but still low. Will replete and monitor. 7. Anemia, likely anemia of chronic disease. Transfuse 1 unit initially and largely stable since then. Continue to monitor. 8. Dementia, possible metabolic encephalopathy. The patient is oriented to person only. Some of this is likely chronic but exact baseline uncertain. Continue treating underlying condition and monitor. [facility]
[2019-03-24] MEDS: LIPITOR PO SCH (20:54)
[2019-03-24] MEDS: CALTRATE 600 + D PO SCH (20:54)
[2019-03-24] MEDS: FLOMAX PO SCH (20:54)
[2019-03-25] MEDS: DUONEB (A & A) INH SCH ×5 (03:26→23:55)
[2019-03-25] MEDS: ZOSYN 3.375 GM in NS 50 ML IV SCH ×4 (05:18→17:21)
[2019-03-25] MEDS: LOVENOX SUBQ SCH (05:18)
[2019-03-25 05:32] LABS: BASO# 0.06 X1000 (0.0-0.2); BASO% 0.7 % (0.0-0.8); EOS# 0.54 X1000 (0.0-0.7); HEMATOCRIT 28.5 % (42.0-52.0); HEMOGLOBIN 9.1 g/dL (14.0-18.0); IMM GRAN# 0.03 X1000 (0.0-0.04); IMM GRAN% 0.3 % (0.0-0.5); MCH 27.4 PG (27-31); MCHC 31.9 g/dL (33-37); MCV 85.8 FL (81-99); MONO# 1.16 X1000 (0.11-0.59); NEUT# 5.46 X1000 (1.4-6.5); PLT 498 X1000 (130-400); RBC 3.32 XMIL (4.7-6.1); RDW 14.4 % (11.5-14.5); WBC 8.95 X1000 (4.8-10.8)
[2019-03-25 05:51] LABS: AGAP 14; BUN 13 mg/dL (8-22); CALCIUM 8.3 mg/dL (8.8-10.2); CHLORIDE 96 mmol/L (98-107); COSMO 282; CREATININE 1.1 mg/dL (0.7-1.2); ESTIMATED GFR > 60; GLUCOSE 249 mg/dL (70-104); POTASSIUM 2.8 mmol/L (3.5-5.1); SODIUM 137 mmol/L (136-145); TCO2 27 mmol/L (25-35)
[2019-03-25] MEDS: HUMALOG SUBQ SCH ×4 (06:00→21:13)
--- NOTE | 2019-03-25 07:02 | INFECTIOUS DISEASE PROGRESS NO ---
DATE: 03/25/2019 PRESENT ILLNESS: The patient has a bilateral pneumonia which could be secondary to aspiration. MEDICATIONS: This is day 3 of treatment with Zosyn. PHYSICAL EXAMINATION: Vital Signs: Temperature is 98.2 degrees, pulse 99, respirations 17, blood pressure 131/70. General: This is an ill-appearing, middle-aged male. He is in no acute distress. Head/eyes/ears/nose/throat: He can hear my spoken words and see near objects. He does not have any white coating on his tongue. Neck: No pain with movement of it. Lungs: Clear to auscultation. Cardiovascular: Heart rate is regular. Abdomen: Soft and nontender. Neurologic: The patient is alert today. He was able to converse in a coherent fashion. He does not have a tremor. LAB AND X-RAY: There is no new radiographic study for today. The CBC shows a white count of 8950, hemoglobin 9.1, and platelet count 498,000. Creatinine is 1.1. GFR is greater than 60. A procalcitonin level was ordered, but the result is still pending. ASSESSMENT AND PLAN: The patient may have may well have an aspiration pneumonia. I am waiting for the procalcitonin to see there is a pneumonia or if most of it is due to pulmonary venous congestion. For now, I plan to continue Zosyn. COMORBIDITIES: Dementia, seizure disorder, anxiety disorder, and diabetes mellitus. cc: Cesario Fuchs MD
[2019-03-25] MEDS ORDERED: KLOR-CON POWDER PACKET PO ONE (07:43)
[2019-03-25] MEDS: ASPIRIN EC PO SCH (10:07)
[2019-03-25] MEDS: COGENTIN PO SCH ×2 (10:07→21:37)
[2019-03-25] MEDS: XANAX PO SCH ×2 (10:07→16:46)
[2019-03-25] MEDS: COREG PO SCH ×2 (10:07→20:58)
[2019-03-25] MEDS: DIOVAN PO SCH (10:07)
[2019-03-25] MEDS: CULTURELLE PO SCH ×2 (10:08→20:59)
[2019-03-25] MEDS: RISPERDAL PO SCH (10:08)
[2019-03-25] MEDS: SYSTANE EYE DROPS OPH SCH (10:11)
[2019-03-25] MEDS: LASIX IV SCH ×2 (10:11→20:58)
[2019-03-25] MEDS: LANTUS INSULIN SUBQ SCH (13:00)
--- NOTE | 2019-03-25 13:17 | PROGRESS NOTE ---
DATE: 03/25/2019 INTERVAL HISTORY: Patient reports roughly stable dyspnea on admission. Oxygen requirements slightly improved. Afebrile overnight. No new complaints. No acute events overnight. REVIEW OF SYSTEMS: Twelve point review of systems negative except as per interval history. LABORATORY: Glucose 191 to 275. WBC 8.9, hemoglobin 9.1, hematocrit 28.5, and platelets 498,000. Sodium 137, potassium 2.8, BUN 13, and creatinine 1.1. VITALS: T-max 98.2 degrees, pulse 97, respirations 18, blood pressure 121/58, and O2 saturation 99% on 2 L by nasal cannula. PHYSICAL EXAMINATION: General: No acute distress. Chronically ill appearing. Vitals: As above. HEENT: Normocephalic, atraumatic. Moist mucous membranes. No cervical adenopathy. Cardiovascular: Regular rate and rhythm. No murmurs noted. Pulmonary: Bibasilar crackles, but otherwise significantly improved from previous. Largely clear to auscultation at this point. Abdomen: Soft, nontender, and nondistended. Bowel sounds positive. Extremities: Peripheral pulses intact. No clubbing or cyanosis. Neurologic: Cranial nerves grossly intact. Mild global weakness but no focal deficits. Psychiatric: Normal mood and affect. Remains oriented to person only, but largely cooperative and conversant. Skin: No new rashes or lesions identified. ASSESSMENT AND PLAN: 1. Outpatient treatment failure for HCAP. Remains on antibiotics with Zosyn as per Infectious Disease. Oxygen requirements improved. May be able to get him off oxygen entirely today. Cultures no growth to date. Procalcitonin pending to help decide if his current issues are still pneumonia or purely edema/CHF related. 2. Pulmonary edema, acute on likely chronic systolic congestive heart failure. The patient with markedly elevated BNP, edema on x-ray which was worsened 03/24. An echo showing EF 30 to 35. New diagnosis although suspect it has been present for quite a while. Patient responding briskly to diuretics restarted yesterday. Approximately 3 L negative in the last 24 hours. Kidneys are tolerating diuresis so far. Continue intravenous Lasix and beta jorje for now. Once we are sure patient's kidneys, we will continue to tolerate diuresis, then we will start NATA inhibitor. 3. Diabetes fairly consistently moderately elevated. We will go ahead and start him on some low- dose Lantus and continue sliding scale and monitor. 4. Hypernatremia resolved. Continue to monitor. 5. Seizure disorder, stable on home medications. Continue. 6. Hypokalemia significantly low again today. We will replete more aggressively and monitor. 7. Anemia, likely anemia of chronic disease. Transfused 1 unit initially, but largely stable since then. 8. Dementia, possible metabolic encephalopathy. Patient remains oriented to person only. Chronically, some dementia and patient long-term follow-up so this may be baseline. We will continue to treat underlying conditions and monitor for response. 9. Diarrhea. Patient with 1 episode of watery diarrhea this morning. C. Diff sent and negative. We will monitor to see if it repeats itself. 10. 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 ALDA
[2019-03-25] MEDS: DEPACON 250 MG in NS 50 ML IV SCH (14:27)
[2019-03-25] MEDS: KEPPRA 500 MG in NS 100 ML IV SCH (14:27)
[2019-03-25] MEDS ORDERED: KLOR-CON PO ONE (17:52)
--- NOTE | 2019-03-25 18:10 | CARDIOLOGY PROGRESS NOTE ---
DATE: 03/25/2019 SUBJECTIVE: The patient denies chest discomfort or shortness of breath on nasal cannula oxygen. OBJECTIVE: Blood pressure 142/71, heart rate 89, oxygen saturation 100% on nasal cannula oxygen at 2 L/minute. There is no significant jugular venous distention. Auscultation of chest reveals minimal bibasilar crackles, improved from previous exam.Cardiac: Regular rate and rhythm without appreciable murmur or gallop. There is no evidence of peripheral edema. LABORATORY DATA: Includes a white blood cell count 8.95, hematocrit 28.5, hemoglobin 9.1, platelet count 498,000. Sodium 137, potassium 2.8, chloride 96, carbon dioxide 27, BUN 13, creatinine 1.1, glucose 249. IMPRESSION: 1. Acute on chronic systolic heart failure. 2. Moderate cardiomyopathy with left ventricular ejection fraction of 35%. 3. Recurrent pneumonia. 4. Dementia. 5. Seizure disorder. 6. Diabetes mellitus. RECOMMENDATIONS: 1. Continue to diurese with intravenous Lasix. 2. Continue Coreg. 3. Continue low-dose valsartan. 4. Followup chest x-ray. 5. Conservative cardiovascular management overall given patient's functional limitations. cc: Lino Wetzel MD
[2019-03-25] MEDS: LIPITOR PO SCH (20:58)
[2019-03-25] MEDS: FLOMAX PO SCH (20:59)
[2019-03-25] MEDS: CALTRATE 600 + D PO SCH (20:59)
[2019-03-25] MEDS: KLOR-CON PO SCH (22:00)
[2019-03-26] MEDS: ZOSYN 3.375 GM in NS 50 ML IV SCH ×4 (00:04→22:04)
[2019-03-26] MEDS: DEPACON 250 MG in NS 50 ML IV SCH ×2 (03:47→18:14)
[2019-03-26] MEDS: KEPPRA 500 MG in NS 100 ML IV SCH ×2 (03:48→15:59)
[2019-03-26] MEDS: DUONEB (A & A) INH SCH ×4 (03:54→21:20)
[2019-03-26] MEDS: LOVENOX SUBQ SCH (05:57)
[2019-03-26] MEDS: HUMALOG SUBQ SCH ×4 (06:25→22:07)
[2019-03-26 07:06] LABS: HEMATOCRIT 28.2 % (42.0-52.0); MCH 27.1 PG (27-31); MCHC 31.9 g/dL (33-37); MCV 84.9 FL (81-99); NEUT% 65.3 % (42.2-75.2); PLT 430 X1000 (130-400); RBC 3.32 XMIL (4.7-6.1); RDW 14.1 % (11.5-14.5); WBC 9.63 X1000 (4.8-10.8)
[2019-03-26 07:07] LABS: BASO# 0.05 X1000 (0.0-0.2); BASO% 0.5 % (0.0-0.8); EOS# 0.47 X1000 (0.0-0.7); EOS% 4.9 % (0.0-10.0); IMM GRAN# 0.02 X1000 (0.0-0.04); IMM GRAN% 0.2 % (0.0-0.5); LYMPH# 1.54 X1000 (1.2-3.4); MONO# 1.26 X1000 (0.11-0.59); MONO% 13.1 % (1.7-9.3); NEUT# 6.29 X1000 (1.4-6.5)
[2019-03-26 07:27] LABS: CALCIUM 8.6 mg/dL (8.8-10.2); CREATININE 1.4 mg/dL (0.7-1.2); POTASSIUM 3.4 mmol/L (3.5-5.1)
--- NOTE | 2019-03-26 08:31 | Diag Imaging Result Doc PS360 ---
CHEST-2 VIEWS - 03/26/2019 INDICATION: pneumonia and CHF COMPARISON: 03/24/2019 FINDINGS: Stable right PICC line in good position. Stable dense consolidation of the right upper lobe. Otherwise, significant improvement in the central infiltrates/pulmonary edema. Stable cardiomegaly. There are trace pleural effusions. IMPRESSION: Significant improvement in the pulmonary edema. Dense right upper lobe consolidation compatible with pneumonia. Electronically signed by Onesimo Stacy 03/26/2019 8:29 AM
[2019-03-26] MEDS: XANAX PO SCH ×2 (09:58→18:13)
[2019-03-26] MEDS: CULTURELLE PO SCH ×2 (09:59→22:07)
[2019-03-26] MEDS: DIOVAN PO SCH (09:59)
[2019-03-26] MEDS: ASPIRIN EC PO SCH (09:59)
[2019-03-26] MEDS: COREG PO SCH ×2 (10:00→22:06)
[2019-03-26] MEDS: SYSTANE EYE DROPS OPH SCH (10:00)
[2019-03-26] MEDS: KLOR-CON PO SCH ×2 (10:00→22:06)
[2019-03-26] MEDS: RISPERDAL PO SCH (10:00)
[2019-03-26] MEDS: COGENTIN PO SCH ×2 (10:01→22:05)
[2019-03-26] MEDS: POTASSIUM CHLORIDE 20 MEQ/SWI 20 MEQ/100 ML IVPB IV SCH ×2 (12:31→13:40)
[2019-03-26] MEDS: LANTUS INSULIN SUBQ SCH (12:32)
--- NOTE | 2019-03-26 17:25 | PROGRESS NOTE ---
DATE: 03/26/2019 INTERVAL HISTORY: The patient reports near resolution of his dyspnea. He oxygen requirements continue to improve slowly. No acute events overnight. No new complaints. Remains pleasantly confused. REVIEW OF SYSTEMS: Twelve-point review of systems negative except as per interval history. LABORATORIES: WBC 9.6, hemoglobin 9, hematocrit 28.2, platelets 430,000. Sodium 134, potassium 3.4, BUN 15, creatinine 1.4, glucose 124 to 252. IMAGING: Chest x-ray: Significant improvement in pulmonary edema, essentially stable right upper lobe consolidation. PHYSICAL EXAMINATION: vital signs: T-max 98.9 degrees, pulse 98, respirations 16, blood pressure 129/59, and O2 saturation 97% on 2 L by nasal cannula. General: No acute distress. Vitals as above. Chronically ill appearing. HEENT: Normocephalic, atraumatic. Moist mucous membranes. neck: No cervical adenopathy. Cardiovascular: Regular rate and rhythm. No murmurs noted. Pulmonary: Largely clear to auscultation at this point. No wheezing. Good air entry. Abdomen: Soft, nontender, nondistended. Bowel sounds positive. Extremities: Peripheral pulses intact. No clubbing or cyanosis. Neurologic: Cranial nerves grossly intact. Mild global weakness, but no focal deficits. Psychiatric: Normal mood and affect. Remains oriented to person only, but cooperative and largely pleasant. Skin: No new rashes or lesions identified. ASSESSMENT AND PLAN: 1. Outpatient treatment failure for healthcare-associated pneumonia. Remains on antibiotics with Zosyn as per Infectious Disease. O2 requirements improved. Attempting to wean off oxygen entirely. Culture: No growth today. Procalcitonin 0.16 suggesting that his pneumonia may be largely treated at this point. We may be seeing primarily residual findings on x-ray. Continue antibiotics for now, but may be able to discontinue in the next 24 to 48 hours. 2. Acute on likely chronic systolic congestive heart failure, acute pulmonary edema. The patient with markedly elevated BNP edema on x-ray, echo showing ejection fraction of 30% to 35%. New diagnosis, but likely present for awhile. The patient has responded quite well to diuretics. He is almost 6 L negative for the last 2 days. Holding Lasix for today as he has had a bump in his creatinine, but will restart a lower oral dose tomorrow. X-ray has also improved markedly with diuresis. Continue beta jorje. Start NATA inhibitor once kidney function stable. 3. Diabetes. Control somewhat improved with the addition of low-dose Lantus. We will see what that does today and adjust as needed in the morning. 4. Hypernatremia, resolved. Continue to monitor. 5. Seizure disorder, stable on home medications. Continue. 6. Anemia, likely anemia of chronic disease, stable. 7. Dementia. The patient remains oriented to person only. Acute medical issues significantly improved. Suspect this is likely his baseline. 8. Hypokalemia. Mildly low again today. We will further replete and monitor. DISPOSITION: Attempting to wean off oxygen. Both x-ray and symptomatically improved aside from infiltrates in the right upper lobe which may be a residual finding. If he continues to improve, we can get him off oxygen. Then hopefully he can discharge back to the [facility] facility on Thursday.
[2019-03-26] MEDS: FLOMAX PO SCH (22:05)
[2019-03-26] MEDS: LIPITOR PO SCH (22:05)
[2019-03-26] MEDS: CALTRATE 600 + D PO SCH (22:07)
[2019-03-27] MEDS: ZOSYN 3.375 GM in NS 50 ML IV SCH ×4 (02:28→22:42)
[2019-03-27] MEDS: KEPPRA 500 MG in NS 100 ML IV SCH ×2 (02:31→15:20)
[2019-03-27] MEDS: DEPACON 250 MG in NS 50 ML IV SCH ×2 (02:31→15:20)
[2019-03-27] MEDS: DUONEB (A & A) INH SCH ×4 (03:11→21:20)
[2019-03-27] MEDS: HUMALOG SUBQ SCH ×4 (06:08→22:46)
[2019-03-27] MEDS: LOVENOX SUBQ SCH (06:09)
[2019-03-27] MEDS: HALDOL IV PRN (06:23)
[2019-03-27 07:48] LABS: BASO# 0.04 X1000 (0.0-0.2); BASO% 0.4 % (0.0-0.8); EOS# 0.42 X1000 (0.0-0.7); EOS% 4.4 % (0.0-10.0); HEMATOCRIT 28.3 % (42.0-52.0); LYMPH# 1.82 X1000 (1.2-3.4); LYMPH% 19.3 % (20.5-51.1); MCH 27.3 PG (27-31); MCHC 31.8 g/dL (33-37); MCV 85.8 FL (81-99); MONO# 1.01 X1000 (0.11-0.59); MONO% 10.7 % (1.7-9.3); MPV 9.2 FL (7.4-10.4); NEUT# 6.16 X1000 (1.4-6.5); NEUT% 65.2 % (42.2-75.2); PLT 440 X1000 (130-400); RDW 14.3 % (11.5-14.5); WBC 9.45 X1000 (4.8-10.8)
[2019-03-27 08:16] LABS: CALCIUM 8.9 mg/dL (8.8-10.2); CREATININE 1.3 mg/dL (0.7-1.2); POTASSIUM 3.9 mmol/L (3.5-5.1)
[2019-03-27] MEDS: XANAX PO SCH ×2 (09:15→17:07)
[2019-03-27] MEDS: COGENTIN PO SCH ×2 (09:15→22:43)
[2019-03-27] MEDS: ASPIRIN EC PO SCH (09:15)
[2019-03-27] MEDS: LASIX PO SCH (09:16)
[2019-03-27] MEDS: CULTURELLE PO SCH ×2 (09:16→22:44)
[2019-03-27] MEDS: SYSTANE EYE DROPS OPH SCH (09:16)
[2019-03-27] MEDS: KLOR-CON PO SCH ×2 (09:16→22:45)
[2019-03-27] MEDS: COREG PO SCH ×2 (09:16→22:45)
[2019-03-27] MEDS: LANTUS INSULIN SUBQ SCH (09:17)
[2019-03-27] MEDS: DIOVAN PO SCH (09:28)
[2019-03-27] MEDS: TYLENOL PO PRN (15:32)
[2019-03-27] MEDS: RISPERDAL PO SCH (15:32)
--- NOTE | 2019-03-27 16:56 | PROGRESS NOTE ---
DATE: 03/27/2019 INTERVAL HISTORY: Patient finally weaned off oxygen. Dyspnea resolved. No acute events overnight. No complaints. The patient is still pleasantly confused. LABS: Essentially stable. Creatinine 1.3, sodium 138, potassium 3.9. VITALS: T-max 98.7 degrees, pulse 97, respirations 18, blood pressure 133/50, O2 saturation 96% on room air. PHYSICAL EXAMINATION: General: No acute distress. Vitals: As above. Chronically ill- appearing. HEENT: Normocephalic, atraumatic. Moist mucous membranes. No cervical adenopathy. Cardiovascular: Regular rate and rhythm. No murmurs noted. Pulmonary: Clear to auscultation bilaterally. No wheezing. Good air entry. Abdomen: Soft, nontender, nondistended. Bowel sounds positive. Extremities: Peripheral pulses intact. No clubbing or cyanosis. Neurologic: Cranial nerves grossly intact. Mild global weakness but no focal deficits. Psychiatric: Normal mood and affect. The patient continues to be oriented to person only but cooperative and pleasant. Skin: No new rashes or lesions identified. ASSESSMENT AND PLAN: 1. Healthcare-associated pneumonia with outpatient treatment failure. The patient remains on antibiotics with Zosyn. Off of oxygen now. Procalcitonin 0.16, suggesting that his pneumonia may be largely treated at this point. We will see what infectious disease says but suspect that we will be able to discontinue antibiotics tomorrow. 2. Acute on likely chronic systolic congestive heart failure, acute pulmonary edema. Patient with markedly elevated BNP. Edema on initial x-ray. Echocardiogram showing ejection fraction of 30 to 35 percent. The patient responded well to diuretics with 6 L negative over a couple days. Had to hold Lasix when he had a bump in his creatinine but restarting on lower oral dose today as his creatinine is coming down. X-ray improved. No longer requiring oxygen. Continue NATA inhibitor and ARB. 3. Diabetes. Control improved. Monitor. 4. Hypernatremia, resolved. Continue to monitor. 5. Seizure disorder, stable on home medications. Monitor. 6. Anemia, stable, most likely anemia of chronic disease. 7. Dementia. The patient is oriented to person only, which I suspect is his baseline. 8. Hypokalemia, improved. Continue to monitor. 9. Disposition. Now off oxygen. We will discuss with infectious disease but suspect he will be able to discontinue antibiotics and discharge him back to [facility] tomorrow. ALDA
[2019-03-27] MEDS: LIPITOR PO SCH (22:44)
[2019-03-27] MEDS: FLOMAX PO SCH (22:44)
[2019-03-27] MEDS: CALTRATE 600 + D PO SCH (22:45)
[2019-03-28] MEDS: KEPPRA 500 MG in NS 100 ML IV SCH ×2 (02:10→15:39)
[2019-03-28] MEDS: DEPACON 250 MG in NS 50 ML IV SCH ×2 (02:45→15:33)
[2019-03-28] MEDS: DUONEB (A & A) INH SCH ×3 (03:22→17:04)
[2019-03-28] MEDS: ZOSYN 3.375 GM in NS 50 ML IV SCH ×2 (04:44→09:09)
[2019-03-28] MEDS: LOVENOX SUBQ SCH (06:25)
[2019-03-28] MEDS: HUMALOG SUBQ SCH ×2 (06:26→12:32)
[2019-03-28 07:16] LABS: BASO# 0.05 X1000 (0.0-0.2); BASO% 0.6 % (0.0-0.8); EOS# 0.44 X1000 (0.0-0.7); EOS% 4.9 % (0.0-10.0); HEMOGLOBIN 9.8 g/dL (14.0-18.0); IMM GRAN# 0.02 X1000 (0.0-0.04); IMM GRAN% 0.2 % (0.0-0.5); LYMPH# 1.54 X1000 (1.2-3.4); MCH 26.8 PG (27-31); MCHC 31.6 g/dL (33-37); MCV 84.9 FL (81-99); MONO# 0.97 X1000 (0.11-0.59); MONO% 10.7 % (1.7-9.3); MPV 9.4 FL (7.4-10.4); NEUT# 6.02 X1000 (1.4-6.5); NEUT% 66.6 % (42.2-75.2); PLT 419 X1000 (130-400); RBC 3.65 XMIL (4.7-6.1); RDW 14.6 % (11.5-14.5); WBC 9.04 X1000 (4.8-10.8)
--- NOTE | 2019-03-28 07:20 | Diag Imaging Result Doc PS360 ---
EXAM: CHEST-1 VIEW INDICATION: pneumonia TECHNIQUE: One view COMPARISON: 03/26/2019 FINDINGS: Right PICC line is in stable position. The dense airspace consolidation in the right upper lobe is approximately stable as is the interstitial edema given slight differences in exposure. No new consolidation is identified. Cardiac silhouette is stable. IMPRESSION: Essentially stable chest. Electronically signed by Win Melton 03/28/2019 7:18 AM
[2019-03-28 07:57] LABS: CALCIUM 8.7 mg/dL (8.8-10.2); CREATININE 1.3 mg/dL (0.7-1.2)
[2019-03-28] MEDS: SYSTANE EYE DROPS OPH SCH (09:00)
[2019-03-28] MEDS: XANAX PO SCH (09:01)
[2019-03-28] MEDS: KLOR-CON PO SCH (09:01)
[2019-03-28] MEDS: DIOVAN PO SCH (09:01)
[2019-03-28] MEDS: ASPIRIN EC PO SCH (09:01)
[2019-03-28] MEDS: CULTURELLE PO SCH (09:01)
[2019-03-28] MEDS: COGENTIN PO SCH (09:02)
[2019-03-28] MEDS: COREG PO SCH (09:03)
[2019-03-28] MEDS: LASIX PO SCH (09:12)
[2019-03-28] MEDS: LANTUS INSULIN SUBQ SCH (09:34)
[2019-03-28] MEDS: RISPERDAL PO SCH (09:34)
[2019-03-28] MEDS ORDERED: ZOSYN ONE (09:50)
--- NOTE | 2019-03-28 12:50 | DISCHARGE SUMMARY ---
ADMISSION DATE: 03/21/2019 DISCHARGE DATE: 03/28/2019 PRIMARY CARE PHYSICIAN: Dr. Carcamo. ADMISSION DIAGNOSES: 1. Probable failed outpatient treatment for recurrent hospital-acquired pneumonia. 2. Questionable sepsis secondary to pneumonia. 3. Altered mental status. 4. Diabetes. 5. Hypothyroidism. 6. History of seizures. 7. Acute kidney injury. 8. Dementia. DISCHARGE DIAGNOSES: 1. Healthcare-associated pneumonia with outpatient treatment failure improved. 2. Acute on likely chronic systolic congestive heart failure with acute pulmonary edema, improved. 3. Diabetes. 4. Hypernatremia resolved. 5. Seizure disorder. 6. Anemia most likely of chronic disease. 7. Dementia. SUMMARY OF FINDINGS: This is a 63-year-old male who had been treated and discharged for pneumonia on 03/18/2019. He was sent to the longterm with IV antibiotics with vancomycin and cefepime. He had a PICC line to his right upper extremity. [facility] staff noticed that he could not feed himself. They continued to watch him, and his condition worsened so EMS was called for decreased responsiveness. Chest x-ray showed progressively worsening pulmonary edema and/or pneumonia. He was admitted. We consulted ID, and placed him on O2 with breathing treatments. Urine culture had no growth. Blood cultures had no growth. We checked him for a C. Difficile antigen that was negative. His white blood cell count has returned to normal at 9.04. His potassium has been supplemented and has now returned to normal at 4. He has completed his antibiotic therapy, and it is now felt that he can safely be discharged back to the longterm. DISCHARGE MEDICATIONS: 1. DuoNeb q.2 hours p.r.n. and q.6 hours routinely. 2. Xanax 0.5 mg p.o. daily. 3. Aspirin 81 mg p.o. daily. 4. Atorvastatin 40 mg p.o. at bedtime. 5. Benztropine 0.5 mg p.o. b.i.d. 6. Calcium with vitamin D 1 p.o. at bedtime. 7. Coreg 6.25 mg p.o. b.i.d. 8. Artificial Tears ophthalmically daily. 9. Lasix 40 mg p.o. daily. 10. Culturelle 1 p.o. b.i.d. 11. Aquaphor topically p.r.n. 12. Flomax 0.4 mg p.o. at bedtime. 13. Valsartan 40 mg p.o. daily. 14. Tylenol 650 mg p.o. q.6 hours p.r.n. 15. Xanax 0.25 mg p.o. q.8 hours p.r.n. 16. Divalproex sodium 750 mg p.o. at bedtime. 17. Cymbalta 30 mg p.o. daily. 18. NovoLog FlexPen per sliding scale. 19. Lantus SoloSTAR 10 units subcutaneous every morning. 20. Vimpat 100 mg p.o. b.i.d. 21. Keppra 500 mg p.o. b.i.d. 22. Glucophage XR 1000 mg p.o. at bedtime. 23. Multivitamin 1 p.o. daily. 24. Omeprazole 40 mg p.o. daily. 25. Potassium 40 mEq p.o. daily 26. Risperdal 1 mg p.o. b.i.d. 27. Diovan 40 mg p.o. daily. FOLLOW-UP: He will follow up with a long-term care physician once he arrives to the long term facility. TIME SPENT: This is a 35 minute discharge. Dictated by LINNETTE Gr for Aguilar Rapp MD cc: MD Dalila Donovan CRNP Agree with the above. the following is my own face to face assessment. Patient with continued confusion, likely baseline. lungs now CTAB. heart: RRR. stable for discharge back to facility. after discussion with ID he was also continued on PO augmentin in addition to the above meds. MTDD
[2019-03-28] MEDS ORDERED: AUGMENTIN PO SCH (15:45)
[2019-03-28 18:15] VITALS: BP 128/42
[2019-03-28] MEDS ORDERED: CIPRO PO SCH (21:00)
--- NOTE | 2019-03-28 21:38 | DISCHARGE SUMMARY ---
ADMISSION DATE: 03/21/2019 DISCHARGE DATE: 03/28/2019 Mr. Sinclair is going back to the [facility] today. We have reviewed his previous x- rays, and although his procalcitonin level is low, it does look as though he has a stubborn right upper lobe consolidation. At this point, we will go ahead and order Augmentin 500 mg and Cipro 500 mg to be given every 12 hours for a total 14 days. We will also have him come into our office in 14 days at which time, we will recheck his chest x-ray. These plans have been discussed with and recommended by Dr. Fuchs, and Dr. Rapp has also been made aware. Dictated by LINNETTE Hagan for Cesario Fuchs MD cc: Cesario Fuchs MD MTDD
== END 2019-03-28 18:52 | DRG 193 ==
LOC: EDBD → ED 09:21 → EDIPHOLD 11:51 → SUATTDRO 11:51 → 3S 16:21 → 3N 03-25 22:17
PROVIDERS: ATTEND Internal Medicine
CPT/HCPCS: 36430; 70450; 71010; 71020; 71045; 71046; 80048; 80053; 80164; 80165; 81001; 82272; 82550; 82805; 82948; 83605; 83735; 83880; 84132; 84145; 84484; 85025; 85610; 85730; 86850; 86900; 86901; 86920; 87040; 87088; 87324; 87449; 92526; 93005; 93306; 94640; 94660; 94761; 94799; 96365; 96367; 97161; 99285; A9270; C8929; J1630; J1650; J1815; J1940; J1953; J2060; J2543; J3370; J3480; J7030; J7040; P9016; Q9957; S0073; XXXXX